=== PATIENT | female | born 2000 | race Caucasian/White ===

== ENCOUNTER 2022-05-15 12:04 | Emergency (ER) | payer OTHER, SELFPAY ==
--- NOTE | 2022-05-15 12:52 | ED.URI ---
HPI - URI/Sore Throat General Chief Complaint: Upper Respiratory Infection Stated Complaint: Sore Throat Time Seen by Provider: 05/15/22 13:05 Source: patient and RN notes reviewed Mode of arrival: ambulatory Limitations: no limitations History of Present Illness HPI Narrative: 22-year-old female presents concern for sore throat started last. She denies nasal congestion, rhinorrhea, fevers, aches chills sweats cough. She reports she has allergy-induced asthma and was cleaning her basement and thought maybe it just caused a reaction. She denies wheezing, has not used her inhaler. MD elicited complaint: sore throat Related Data Home Medications Medication Instructions Recorded Confirmed albuterol sulfate 90 mcg/actuation 2 puff inhalation PRN PRN 05/15/22 05/15/22 aerosol inhaler Shortness Of Breath cetirizine 10 mg capsule (Zyrtec) 10 mg PO DAILY 05/15/22 05/15/22 montelukast 10 mg tablet 10 mg DAILY 05/15/22 05/15/22 Allergies Allergy/AdvReac Type Severity Reaction Status Date / Time adhesive Allergy Hives Verified 05/15/22 12:19 gluten Allergy Diarrhea Verified 05/15/22 12:19 Review of Systems Review of Systems: CONSTITUTIONAL: Denies malaise, chills, sweats, or fever. EYES: Denies visual changes, redness, or discharge. ENT: Denies rhinorrhea, congestion, sinus pain, otalgia. Reports sore throat. CARDIOVASCULAR: Denies chest pain, palpitations, or edema. RESPIRATORY: Denies cough. Denies dyspnea. GASTROINTESTINAL: Denies abdominal pain, nausea, vomiting, diarrhea SKIN: Denies rash or itching. MUSCULOSKELETAL: Denies myalgia. NEUROLOGIC: Denies headache. All systems reviewed & are unremarkable except as noted in HPI and below PMFSH Comments At time of signature, agree with nursing past medical, surgical, social and family history. There is no relevant family history pertinent to the presenting complaint Exam Narrative: GENERAL: Well-appearing, well-nourished, and in no acute distress. HEAD: Normocephalic EYES: PERRLA, conjunctivae clear ENT: Nares clear, turbinates edematous and erythematous, clear discharge. Mucous membranes moist. TM pearly german with dull light reflex bilaterally; no tragal tenderness. Oropharynx not erythematous without lesions. Tonsils not enlarged and without exudate, no drooling, no hoarseness, no trismus, uvula midline. NECK: Supple. No lymphadenopathy CHEST: Clear to auscultation, breath sounds equal. No wheezing, rhonchi, rales, or stridor. No respiratory distress, speaks in full sentences. HEART: Regular rate and rhythm. No murmur heard. SKIN: Warm, dry, no rash. NEURO: Alert and oriented x3. PSYCH: Normal mood and affect Course Course Emergency Course: Patient is aware of diagnosis, understands and agrees to treatment plan. Anticipatory guidance given. Patient agrees to follow-up as directed and is aware of reasons to seek care at the emergency department. Portions of this record may have been created with voice recognition software Level of Care: Express Care Visit Vital Signs Vital signs: Reviewed. MDM - URI/Sore Throat MDM Narrative Medical decision making narrative: Differential diagnosis considered: Johnson virus, strep pharyngitis, allergic rhinitis, upper respiratory tract infection, sinusitis, rhinosinusitis, nasopharyngitis. viral pharyngitis, otitis media, otitis externa, pneumonia, bronchitis, viral cough syndrome, viral syndrome, and influenza. Exam findings show no acute concerns or changes; patient is non-toxic appearing and is in no distress. Patient is appropriate for outpatient treatment and follow-up. Lab Data Attestation: I reviewed the patient's lab results. Critical Care Time Critical Care Time Critical Care Time: No Discharge Plan Discharge Clinical Impression: Pharyngitis Patient Disposition: Home, Self-Care Condition: Stable Instructions: Pharyngitis (ED) Additional Instructions: Your symptoms are likely due to a viral illnes
== END 2022-05-15 13:25 | disposition home or self-care (01) ==
PROVIDERS: Emergency Provider Nurse Practitioner; PCP Family Medicine
DX: J02.9 Acute pharyngitis, unspecified (principal)
CPT/HCPCS: 99211; G0463

== ENCOUNTER 2024-09-21 12:56 | Emergency (ER) | payer OTHER, SELFPAY ==
[2024-09-21 12:57] VITALS: BP 139/83; PULSE 75; RESP 16; TEMP 36.2; O2SAT 98
--- OUTSIDE RECORDS SUMMARY | 2024-09-21 14:34 | XMS_ITS | Clinical Summary ---
Author Organization [facility] Business Office Address [address] [place] [address] Care Team Providers Care Blocklayer Name Role Phone Radha Knox DO Primary Care Provider [phone] Allergies Active Allergy Reactions Criticality Noted Date Comments Adhesive Tape-Silicones Rash Low 07/22/2017 Medications CETIRIZINE HCL (ZYRTEC ORAL) Take by mouth daily . Active norgestimate-et hinyl estradiol (MONONESSA, 28,) 0.25 mg-35 mcg tablet Take 1 Tablet by mouth daily. 1 Package 1 11/11/2017 Active Saccharomyces boulardii (FLORASTOR) 250 mg Capsule Take 500 mg by mouth daily. Active propranoloL (INDERAL) 10 mg tabletIndicatio ns:Test anxiety Take 1 Tablet (10 mg) by mouth 1 time daily as needed (test anxiety). 30 Tablet 6 10/13/2020 Active lidocaine (XYLOCAINE) 2 % jelly Apply 1 ml 5 minutes before activity. 30 mL 3 10/13/2020 Active Active Problems Problem Noted Date Diagnosed Date Gluten intolerance 05/22/2018 Immunizations Immunization Administration Dates Next Due (INFANRIX)(6 WKS-6 YRS) DIPT HERIA, TETANUS TOXOIDS, AND ACCELLULAR PERTUSSIS VACCINE (DTAP), 0.5 ML IM 02/22/2003,04/05/1999,1998,1997,1998 (IPOL)(6 WKS AND UP) POLIOVI EUGENE VACCINE, INACTIVATED (IPV), 3 DOSE, SUBCUT OR IM 02/22/2003,04/05/1999,1998,1997 (M-M-R II/PRIORIX)(12 MO UP) MEASLES, MUMPS AND RUBELLA VIRUS VACCINE, 0.5 ML IM/SUBCUT 02/22/2003,01/13/1999 HIB, Unspecified Formulation 04/05/1999, 1998,1998,1997 Hepatitis B Vaccine 1998,1998,1997 INFLUENZA VACCINE QUADRIVALE NT 6 MOS UP IM 05/22/2018 Family History Medical History Relation Name Comments Healthy Father Healthy Mother Relation Name Status Comments Father Alive Mother Alive Social History Tobacco Use Types Packs/Day Years Used Date Smoking Tobacco: Never Smokeless Tobacco: Never Tobacco Cessation:Counseling Given: No Alcohol Use Standard Drinks/Week Comments Yes 0 (1 standard drink = 0.6 oz pur e alcohol) socially Comments No Sex and Gender Information Value Date Recorded Sex Assigned at Not on file 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 Gender Identity Not on file Sexual Orientation Not on file Occupation Industry Job Start Date Job End Date Not on file Not on file Not on file Not on file Not on file Not on file Not on file Not on file Last Filed Vital Signs Vital Sign Reading Time Taken Comments Blood Pressure 122/80 10/13/2020 9:43 AM CDT Pulse 71 10/13/2020 9:43 AM CDT Temperature 36.7 C (98.1 F) 10/13/2020 9:43 AM CDT Respiratory Rate 18 10/13/2020 9:43 AM CDT Oxygen Saturation 99% 10/13/2020 9:43 AM CDT Inhaled Oxygen Concentration - - Weight 82.6 kg (182 lb) 10/13/2020 9:43 AM CDT Height 165.1 cm (5' 5 ) 10/13/2020 9:43 AM CDT Body Mass Index 30.29 10/13/2020 9:43 AM CDT Plan of Treatment Health Maintenance Due Date Last Done Comments DTAP/TDAP/TD VACCINES (6 - Tdap) 2009 02/22/2003, 04/05/1999, 1998, Additional history exists HPV VACCINES (1 - 3-dose series) 2013 HPV/Cotest (21-29) 01/07/2022 01/07/2017 CERVICAL CANCER SCREENING 10/14/2023 PAP SMEAR 10/14/2023 10/13/2020, 09/25, 01/07/2017 INFLUENZA VACCINE (#1) 2023 05/22/2018 Preventative Visit- Commercial 05/27/2024 0 10/13/2020, 05/22/2018, 01/07/2017, Additional history exists HPV/Cotest (30-65) 01/11/2028 01/07/2017 HEPATITIS B VACCINES Completed 1998, 1998, 1998 CHLAMYDIA SCREENING (ANNUAL) 11-24 YEARS Discontinued 10/13/2020 Procedures Procedure Name Priority Date/Time Associated Diagnosis Comments CHLAMYDIA AND GC, PAP VIAL Routine 10/13/2020 9:48 AM CDT Encounter for gynecological examination without abnormal finding CERV/VAG CYTO AGE BASED SCREEN PAP Routine 10/13/2020 9:48 AM CDT Encounter for gynecological examination without abnormal finding CERV/VAG CYTO SCREEN PAP RLFX HPV Routine 01/07/2017 8:13 AM CDT Well woman exam with routine gynecological exam from Last 3 Months or Most Recently Relevant to Health Maintenance Results * CERV/VAG CYTO AGE BASED SCREEN PAP (10/13/2020 9:48 AM CDT) COMMENT (PAP): SEE COMMENT 2:33 PM CDT [facility] Comment: This order for age-based cervical cancer and STI screening follows ACOG guidelines(PB 168, 140, ACX888). See individual assays for performing site location. CLINICAL INFORMATION Oral contraceptives 10/17/2020 2:33 PM CDT [facility] LAST MENSTRUAL PERIOD 10/05/2020 10/17/2020 2:33 PM CDT [facility] PREV PAP: 12/13/16 NIL 10/17/2020 2:33 PM CDT [facility] PREV BX: INFORMATION NOT PROVIDED 10/17/2020 2:33 PM CDT [facility] SOURCE Endocervix 10/17/2020 2:33 PM CDT [facility] ADEQUACY: SEE COMMENT 10/17/2020 2:33 PM CDT [facility] Comment: Satisfactory for evaluation. Endocervical/transformation zone component absent. PAP INTERP Negative for intraepithelial lesion or malignancy. 10/17/2020 2:33 PM CDT [facility] COMMENT This Pap test has been evaluated with computer assisted technology. 10/17/2020 2:33 PM CDT [facility] GROOMING ASSISTANT: SEE COMMENT 2020 2:33 PM CDT [facility] Comment: AMW, CT(ASCP) CT screening location: [place] [address] Administration [place] [address] EXPLANATORY NOTE SEE COMMENT 021 2:33 PM CDT [facility] Comment: EXPLANATORY NOTE: The Pap is a screening test for cervical cancer. It is not a diagnostic test and is subject to false negative and false positive results. It is most reliable when a satisfactory sample, regularly obtained, is submitted with relevant clinical findings and history, and when the Pap result is evaluated along with historic and current clinical information. Genital SWAB OF ENDOCERVIX / Unknown Collection / Unknown 10/13/2020 9:48 AM CDT 10/13/2020 12:46 PM CDT Narrative [facility] - 10/17/2020 2:33 PM CDT Performing Organization Information: Site ID: Name: [facility] Address: [facility] Administration [place] [address] Director: Karen Camp Radha Knox DO PATHOLOGY/CYTOLOGY ORDERABLES Final Result [facility] [phone] * CHLAMYDIA AND GC, PAP VIAL (10/13/2020 9:48 AM CDT) C TRAC RNA NOT DETECTED NOT DETECTED 10/17/2020 2:33 PM CDT [facility] N.GONORRHOEAE RNA, TMA NOT DETECTED NOT DETECTED 10/17/2020 2:33 PM CDT [facility] COMMENT SEE COMMENT 10/17/2020 2:33 PM CDT [facility] Comment: The analytical performance characteristics of this assay, when used to test SurePath(TM) specimens have been determined by [facility]. The modifications have not been cleared or approved by the FDA. This assay has been validated pursuant to the CLIA regulations and is used for clinical purposes. For additional information, please refer to https://education.[employer]faq/MFN973 (This link is being provided for information/ educational purposes only.) Genital SWAB OF ENDOCERVIX / Unknown Collection / Unknown 10/13/2020 9:48 AM CDT 10/13/2020 12:46 PM CDT Narrative [facility] - 10/17/2020 2:33 PM CDT Performing Organization Information: Site ID: [place] Name: [facility] Address: [address] [place] [address] Director: Jose White D.O., MPH Radha Knox DO BODY FLUIDS AND STOOLS COM Fin al Result [facility] [phone] * CERV/VAG CYTOPATH, THIN PREP IMAGR RFLX HPV (01/07/2017 8:13 AM CDT) CLINICAL INFORMATION SEE COMMENT 2017 3:24 PM CDT [facility] Comment:Oral contraceptives LAST MENSTRUAL PERIOD 2017010201/10/2017 3:24 PM CDT [facility] PREV PAP: SEE COMMENT 2017 3:24 PM CDT [facility] Comment:INFORMATION NOT PROV IDED PREV BX: SEE COMMENT 2017 3:24 PM CDT [facility] Comment:INFORMATION NOT PROV IDED SOURCE SEE COMMENT 2017 3:24 PM CDT [facility] Comment:Information not prov ided ADEQUACY: SEE COMMENT 2017 3:24 PM CDT [facility] Comment: Satisfactory for evaluation. Endocervical/transformation zone component absent. PAP INTERP SEE COMMENT 2017 3:24 PM CDT [facility] Comment:Negative for intraep ithelial lesion or malignancy. CYTOLOGY INFECTION SEE COMMENT 01/10 3:24 PM CDT [facility] Comment: Shift in vaginal christie suggestive of bacterial vaginosis. COMMENT SEE COMMENT 2017 3:24 PM CDT [facility] Comment: This Pap test has been evaluated with computer assisted technology. GROOMING ASSISTANT: SEE COMMENT 2016 3:24 PM CDT [facility] Comment: BAB, CT(ASCP) CT screening location: [place] [address] Administration [place] [address] Genital SWAB OF ENDOCERVIX / Unknown Collection / Unknown 01/07/2017 8:13 AM CDT 01/07/2017 1:19 PM CDT Narrative [facility] - 2017 3:24 PM CDT Performing Organization Information: Site ID: Name: [facility] Address: [facility] [place] [address] Director: Karen Camp MD Radha Knox DO PATHOLOGY/CYTOLOGY ORDERABLES Final Result [facility] from Last 3 Months or Most Recently Relevant to Health Maintenance Insurance [facility] Care Teams Blocklayer Relationship Specialty Start Date End Date Radha Knox DO [address] [place] [address] PCP - General Family Practice 09/29/15
--- OUTSIDE RECORDS SUMMARY | 2024-09-21 14:34 | XMS_ITS | Encounter Summary ---
Author Organization [facility] Address [address] [place] [address] Care Team Providers Care Copy Coordinator Name Role Phone Radha Knox DO Primary Care Provider [phone] Encounter Details Date Type Department Care Team (Late st Contact Info) Description 06/08/2003 Inpatient Historical [facility] [place] [address] [facility] [place] [phone] Mikey Perry DO [address] [facility] 5th [place] [address] STOMACH FUNCTION DIS NEC (Primary Dx) Social History Tobacco Use Types Packs/Day Years Used Date Smoking Tobacco: Never Assessed Comments Unknown Sex and Gender Information Value Date Recorded Sex Assigned at Not on file 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
--- OUTSIDE RECORDS SUMMARY | 2024-09-21 14:34 | XMS_ITS | Encounter Summary ---
Author Organization [facility] Address [address] [facility] [place] [address] Care Team Providers Care Momd Teacher Name Role Phone Radha Knox DO Primary Care Provider Encounter Details Date Type Department Care Team (Late st Contact Info) Description 01/30/2015 Ancillary Orders [facility] [place] [address] 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
--- OUTSIDE RECORDS SUMMARY | 2024-09-21 14:34 | XMS_ITS | Encounter Summary ---
Author Organization [facility] Address [address] [facility] [place] [address] Care Team Providers Care Bakery Decorator Name Role Phone Radha Knox DO Primary Care Provider Encounter Details Date Type Department Care Team (Late st Contact Info) Description 01/27/2003 Emergency [facility] [address] [facility] [place] [phone] Harjit Pérez MD NO ADDRESS ON FILE OTITIS MEDIA NOS (Primary Dx) Social History Tobacco Use Types Packs/Day Years Used Date Smoking Tobacco: Never Assessed Comments Unknown Sex and Gender Information Value Date Recorded Sex Assigned at Not on file 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
--- OUTSIDE RECORDS SUMMARY | 2024-09-21 14:34 | XMS_ITS | Encounter Summary ---
Author Organization [facility] Address [address] [place] [address] Care Team Providers Care Spray Gun Operator Name Role Phone Radha Knox DO Primary Care Provider [phone] Encounter Details Date Type Department Care Team (Latest Contact Info) Description 07/16/2017 Ancillary Orders [facility] [address] [place] [phone] Lorenzo Green MD [address] [place] [address] Acute pain of right shoulder; Shoulder instability, right Social History Tobacco Use Types Packs/Day Years Used Date Smoking Tobacco: Never Smokeless Tobacco: Never Alcohol Use Standard Drinks/Week Comments No 0 (1 standard drink = 0.6 oz pur e alcohol) Comments No Sex and Gender Information Value Date Recorded Sex Assigned at Not on file 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 Exam: XR SHOULDER 2+ VW RIGHT Date/Time of Exam: 07/16/2017 10:02 AM Reason For Exam: Acute pain of right shoulder, Shoulder instability, right. Findings: 0.2 mL ProHance and 5 mL Isovue-300 contrast was injected in the right glenohumeral joint and the images confirm the intra-articular injection of contrast. Please see the MRI of the same day. [id number] Narrative Procedure Note Myriam Steele MD - 07/16/2017 IMPRESSION: Please see below. Exam: XR SHOULDER 2+ VW RIGHT Date/Time of Exam: 07/16/2017 10:02 AM Reason For Exam: Acute pain of right shoulder, Shoulder instability, right. Findings: 0.2 mL ProHance and 5 mL Isovue-300 contrast was injected in the right glenohumeral joint and the images confirm the intra-articular injection of contrast. Please see the MRI of the same day. [id number] Lorenzo Green MD DIAGNOSTIC IMAGING ORDER ARELY Final Result documented in this encounter Visit Diagnoses Diagnosis Acute pain of right shoulder Shoulder instability, right Acute pain of right shoulder Shoulder instability, right documented in this encounter Care Teams Spray Gun Operator Relationship Specialty Start Date End Date aRdha Knox DO [address] [place] [phone] PCP - General Family Practice 09/29/15 documented as of this encounter
--- OUTSIDE RECORDS SUMMARY | 2024-09-21 14:34 | XMS_ITS | Patient Health Record ---
Author Organization [facility]olanda johnson Billing Info Address [address] [place] [address] [place] [address] Support Name Relationship Address Phone Arpan Norman Guarantor Unknown [phone] Reason For Referral No Information Medications Medication SIG (Take, Route, Fr equency, Duration) Notes Start Date End Date Status Zithromax Z-El 250 MG 2 tablets on the first day, then 1 tablet daily for 4 days Orally Once a day for 4 day(s) 12/13/2014 Active Zyrtec Allergy 10 MG 1 tablet as needed Orally Once a day Active Tylenol 325 MG 1 tablet as needed O rally every 6 hrs Active Social History Tobacco Use: Social History Observation Description Date Details (start date - stop date) Never Smoker NA - NA Tobacco Status: Question Answer Notes Patient is a never smoker Problems No Known Problems Plan Of Treatment No Information Insurance Providers Payer Name Payer Address Payer Phone Subscriber Number Group Number Insured Name Patient Relationship to Insured Coverage Start Date Coverage End Date [employer] [facility] [address] [place], [place] [id number] [phone] [id number] Arpan Norman Child - Insured has Financial Responsibility 5 5 Medications Administered Medication Instructions Date of Administration Dosage Notes zMethylprednisolone Acetate 80 mg (Depo Medrol) 12/13/2014 80 mg Medical (General) History Medical History History ICD Code History of chicken pox V12.09 Surgical History Surgery Date(Month/Year) knee arthroscopy 06/07 Knee arthroscaopy 06/06
--- OUTSIDE RECORDS SUMMARY | 2024-09-21 14:34 | XMS_ITS | Clinical Summary ---
Author Organization [facility] Business Office Address [address] [place] [address] Care Team Providers Care Reel Blade Bender Furnace Tender Name Role Phone Radha Knox Primary Care Provider [phone] Allergies Active Allergy Reactions Criticality Noted Date Comments Adhesive Tape-Silicones Rash Low 07/22/2017 Gluten Diarrhea Low 05/31/2021 Vomitting, diarrhea, fatigue and dermatitis Medications propranoloL (INDERAL) 10 mg tablet Take 10 mg by mouth 1 time daily as needed. 1 Active Saccharomyces boulardii (FLORASTOR) 250 mg Capsule Take 500 mg by mouth. Active lidocaine (XYLOCAINE) 2 % jelly Apply 1 ml 5 minutes before activity. 1 Active albuterol sulfate 90 mcg/Actuation inhaler Take 2 Puffs by inhalation every 6 hours as needed for Shortness of Breath. 8.5 Gram 1 Active Estarylla 0.25-35 mg-mcg tablet TAKE ONE TABLET BY MOUTH ONCE DAILY 28 Tablet 11 2 Active montelukast (SINGULAIR) 10 mg tablet TAKE 1 TABLET BY MOUTH EVERY NIGHT AT BEDTIME 90 Tablet 2 Active Active Problems Problem Noted Date Diagnosed [...] Tobacco: Never Alcohol Use Standard Drinks/Week Comments Yes 0 (1 standard drink = 0.6 oz pur e alcohol) Comments No Sex and Gender Information Value Date Recorded Sex Assigned at Not on file Legal Sex Female 11:57 PM DIRECTOR HOSPICE OPERATIONS Gender Identity Not on file Sexual Orientation Not on file Last Filed Vital Signs Vital Sign Reading Time Taken Comments Blood Pressure 122/80 10/13/2020 9:43 AM CDT Pulse 71 10/13/2020 9:43 AM CDT Temperature 36.7 C (98 F) 05/31/2021 9:45 AM DIRECTOR HOSPICE OPERATIONS Respiratory Rate 18 10/13/2020 9:43 AM CDT Oxygen Saturation - - Inhaled Oxygen Concentration - - Weight 84.6 kg (186 lb 9.6 oz) 05/31/2021 9:45 A M DIRECTOR HOSPICE OPERATIONS Height 165.1 cm (5' 5 ) 10/13/2020 9:43 AM CDT Body Mass Index 31.05 10/13/2020 9:43 AM CDT Plan of Treatment Health Maintenance Due Date Last Done Comments DTAP/TDAP/TD VACCINES (6 - Tdap) 2009 02/22/2003, 04/05/1999, 1998, Additional history exists HPV VACCINES (1 - 3-dose series) 2013 HPV/Cotest (21-29) 01/07/2022 01/07/2017 CERVICAL CANCER SCREENING 10/14/2023 PAP SMEAR 10/14/2023 10/13/2020, 09/25, 01/07/2017 INFLUENZA VACCINE (#1) 2023 05/22/2018 HPV/Cotest (30-65) 01/11/2028 01/07/2017 HEPATITIS B VACCINES Completed 1998, 1998, 1998 CHLAMYDIA SCREENING (ANNUAL) 11-24 YEARS Discontinued 10/13/2020 Procedures Procedure Name Priority Date/Time Associated Diagnosis Comments CHLAMYDIA AND GC, PAP VIAL Routine 10/13/2020 9:48 AM CDT CERV/VAG CYTO AGE BASED SCREEN PAP Routine 10/13/2020 9:48 AM CDT CERV/VAG CYTO SCREEN PAP RLFX HPV Routine 01/07/2017 8:13 AM CDT from Last 3 Months or Most Recently Relevant to Health Maintenance Results * CERV/VAG CYTO AGE BASED SCREEN PAP (10/13/2020 9:48 AM CDT) COMMENT (PAP): SEE COMMENT 2:33 PM CDT [facility] Comment: This order for age-based cervical cancer and STI screening follows ACOG guidelines(PB 168, 140, GTR464). See individual assays for performing site location. [...] 2:33 PM CDT [facility] BEAM DYER: SEE COMMENT 2020 2:33 PM CDT [facility] Comment: AMW, CT(ASCP) CT screening location: [place] [address] [address] [place] [address] EXPLANATORY NOTE SEE COMMENT 2:33 PM CDT [facility] Comment: EXPLANATORY NOTE: The [...] Collection / Unknown 10/13/2020 9:48 AM CDT 10/14/2020 7:19 AM CDT Narrative [facility] - 10/17/2020 2:33 PM CDT Performing Organization Information: Site ID: [email or web address] Name[email or web address] Address: [facility] [address] [place] [address] Director: Karen Camp Radha Knox DO PATHOLOGY/CYTOLOGY ORDERABLES Final Result [facility] [phone] [facility] * CHLAMYDIA AND GC, PAP VIAL (10/13/2020 9:48 AM CDT) C TRAC RNA NOT DETECTED NOT DETECTED 10/17/2020 2:33 PM CDT [facility] N.GONORRHOEAE RNA, TMA NOT DETECTED NOT DETECTED 10/17/2020 2:33 PM CDT [facility] COMMENT SEE COMMENT 10/17/2020 2:33 PM CDT [facility] Comment: The analytical performance characteristics of this assay, when used to test SurePath(TM) specimens have been determined by [email or web address]. The modifications have not been cleared or approved by the FDA. This assay has been validated pursuant to the CLIA regulations and is used for clinical purposes. For additional information, please refer to https://education.Referral.IM/faq/MHV682 (This link is being provided for information/ educational purposes only.) Genital SWAB OF ENDOCERVIX / Unknown Collection / Unknown 10/13/2020 9:48 AM CDT 10/14/2020 7:19 AM CDT Narrative [facility] - 10/17/2020 2:33 PM CDT Performing Organization Information: Site ID: [id number] Name: [email or web address] Address: [address] [place] [id number] Director: Jose White D.O., MPH Radha Knox DO BODY FLUIDS AND STOOLS COM Fin al Result [facility] [phone] [facility] * CERV/VAG CYTO SCREEN PAP RLFX HPV (01/07/2017 8:13 AM CDT) CLINICAL INFORMATION SEE COMMENT 2017 3:24 PM CDT [facility] Comment:Oral contraceptives LAST MENSTRUAL PERIOD 2017010201/10/2017 3:24 PM CDT [facility] PREV PAP: SEE COMMENT 2017 3:24 PM CDT [facility] Comment:INFORMATION NOT PROV IDED PREV BX: SEE COMMENT 2017 3:24 PM CDT [facility] Comment:INFORMATION NOT PROV IDED SOURCE SEE COMMENT 2017 3:24 PM CDT [facility] Comment:Information not prov ided ADEQUACY: SEE COMMENT 2017 3:24 PM CDT [facility] Comment: Satisfactory for evaluation. Endocervical/transformation zone component absent. PAP INTERP SEE COMMENT 2017 3:24 PM CDT [facility] Comment:Negative for intraep ithelial lesion or malignancy. CYTOLOGY INFECTION SEE COMMENT 01/10 3:24 PM CDT [facility] Comment: Shift in vaginal christie suggestive of bacterial vaginosis. COMMENT SEE COMMENT 2017 3:24 PM CDT [facility] Comment: This Pap test has been evaluated with computer assisted technology. BEAM DYER: SEE COMMENT 2016 3:24 PM CDT [facility] Comment: BAB, CT(ASCP) CT screening location: [place] [address] [place] [address] Genital SWAB OF ENDOCERVIX / Unknown Collection / Unknown 01/07/2017 8:13 AM CDT 01/09/2017 11:38 AM CDT Narrative [facility] - 2017 3:24 PM CDT Performing Organization Information: Site ID: Name: [email or web address] Address: [facility] [address] [place] [address] Director: Karen Camp MD Radha Knox DO PATHOLOGY/CYTOLOGY ORDERABLES Final Result Performing Organization Address City/State/[facility] Co de Phone Number [facility] from Last 3 Months or Most Recently Relevant to Health Maintenance Care Teams Reel Blade Bender Furnace Tender Relationship Specialty Start Date End Date Radha Knox DO [address] [place] [id number] PCP - General 08/10/20
--- OUTSIDE RECORDS SUMMARY | 2024-09-21 14:34 | XMS_ITS | Encounter Summary ---
Author Organization [employer] [facility] Address [address] [place] [address] Care Team Providers Care Solid Tire Tuber Machine Operator Name Role Phone Radha Knox DO Primary Care Provider [phone] Encounter Details Date Type Department Care Team (Latest Contact Info) Description 09/16/2009 Outpatient Historical [facility] Con[facility] [address] [place] [address] Radha Knox DO [address] [place] [address] Metrorrhagia (Primary Dx); Other General Medical Examination for Administrative Purposes Social History Tobacco Use Types Packs/Day Years Used Date Smoking Tobacco: Never Assessed Comments Unknown Sex and Gender Information Value Date Recorded Sex Assigned at Not on file Legal Sex Female 11:47 AM RESOURCE MANAGER Gender Identity Not on file Sexual Orientation Not on file documented as of this encounter Plan of Treatment Not on file documented as of this encounter Visit Diagnoses Diagnosis Metrorrhagia- Primary Other general medical examination for administrative purposes documented in this encounter Care Teams Solid Tire Tuber Machine Operator Relationship Specialty Start Date End Date Radha Knox DO [address] [place] [address] PCP - General Family Practice 09/29/15 documented as of this encounter
--- OUTSIDE RECORDS SUMMARY | 2024-09-21 14:34 | XMS_ITS | Encounter Summary ---
Author Organization [employer] [facility] Address [address] [place] [address] Care Team Providers Care Loadmaster Name Role Phone Radha Knox DO Primary Care Provider [phone] Encounter Details Date Type Department Care Team (Latest Contact Info) Description 08/01/2010 Outpatient Historical [facility] [address] [place] [address] Chris Tejeda DO [address] [place] [address] Acute upper respiratory infections of unspecified site (Primary Dx) Social History Tobacco Use Types Packs/Day Years Used Date Smoking Tobacco: Never Assessed Comments Unknown Sex and Gender Information Value Date Recorded Sex Assigned at Not on file Legal Sex Female 11:47 AM ASIC ENGINEER Gender Identity Not on file Sexual Orientation Not on file documented as of this encounter Plan of Treatment Not on file documented as of this encounter Visit Diagnoses Diagnosis Acute upper respiratory infections of unspecified site- Primary documented in this encounter Care Teams Loadmaster Relationship Specialty Start Date End Date Radha Knox DO [address] [place] [address] PCP - General Family Practice 09/29/15 documented as of this encounter
--- OUTSIDE RECORDS SUMMARY | 2024-09-21 14:34 | XMS_ITS | Referral Summary ---
Author Organization [address] Address [address] [place] [address] Care Team Providers Care Geotechnical Engineer Name Role Phone Greg Cody MD Primary Care Provider [phone] Encounters Date Type Department Care Team Description 09/20/2024 3:00 PM CDT Office Visit [facility] at [address] [place] [address] Brittany Siddiqui NP Urticaria (Primary Dx) 07/02/2024 10:30 AM EQUIPMENT MAINTENANCE ENGINEER Office Visit [facility] [address] [address] Nani Mcgowan NP Physical exam, annual (Primary Dx); Generalized anxiety disorder; Vitamin D deficiency; Class 1 obesity due to excess calories without serious comorbidity with body mass index (BMI) of 32.0 to 32.9 in adult; Subclinical hypothyroidism from Last 3 Months Allergies Active Allergy Reactions Criticality Noted Date Comments Adhesive Rash Medium 08/29/2021 Adhesive Tape-Silicones Rash Medium 07/22/2017 Gluten Diarrhea Low 05/31/2021 Vomitting, diarrhea, fatigue and dermatitis Levothyroxine Anxiety,Palpitation s Low 05/31/2023 Medications cetirizine (ZyrTEC) 10 mg tablet Take 1 tablet (10 mg total) by mouth daily Active albuterol HFA (PROVENTIL HFA,VENTOLIN HFA,PROAIR HFA) 90 mcg/actuation inhaler Inhale 2 puffs every 6 (six) hours as needed 05/24/2021 Active cholecalciferol (VITAMIN D-3) 5,000 unit tablet Active escitalopram (LEXAPRO) 10 mg tabletIndicatio ns:Generalized anxiety disorder Take 1 tablet (10 mg total) by mouth daily 90 tablet 4 07/02/2024 Active predniSONE (DELTASONE) 20 mg tabletIndicatio ns:Urticaria Take 2 tablets (40 mg) by mouth daily for 5 days 10 tablet 09/20/2024 Active Hospital, Clinic, or Other Facility Administered Medication Ordered Dose Route Frequency Start Date End Date Status methylPREDNISolone sodium succinate (SOLU-medrol) preservative free injection 125 mgIndications:Urticaria 125 mg IM Once 09/20/2024 09/21/19 Ended Active Problems Problem Noted Date Diagnosed Date Physical exam, annual 07/02/2024 Assessment & Plan (07/02/2024 11:13 AM EQUIPMENT MAINTENANCE ENGINEER): Preventative exam; reviewed screenings and vaccinations. Patient is scheduled with cattle dipper for well-woman exam this spring. Pharyngitis 03/20/2024 Class 1 obesity due to exces s calories without serious comorbidity with body mass index (BMI) of 32.0 to 32.9 in adult 09/17/2023 Assessment & Plan (07/02/2024 11:14 AM EQUIPMENT MAINTENANCE ENGINEER): Encouraged getting regular exercise and following a healthy diet. Assessment & Plan (03/20/2024 8:48 AM CDT): Encouraged healthy diet and regular exercise. Assessment & Plan (09/17/2023 8:22 AM CDT): Encouraged healthy diet and regular exercise. Subclinical hypothyroidism 05/31/2023 Assessment & Plan (07/02/2024 11:16 AM EQUIPMENT MAINTENANCE ENGINEER): T4 normal, mildly elevated TSH. Will continue to monitor. Assessment & Plan (03/20/2024 8:35 AM CDT): Will check TSH/T4 and continue to monitor. Lab Results Component Value Date TSH 5.25 (H) 08/31/2021 Assessment & Plan (05/31/2023 11:26 AM EQUIPMENT MAINTENANCE ENGINEER): Managed by endocrinology. Patient is continued levothyroxine 25 mcg about 1 month ago, felt it was contributing to anxiety. She is scheduled for follow-up with her product craftsman in 2 months. Vitamin D deficiency 05/31/2023 Assessment & Plan (07/02/2024 11:13 AM EQUIPMENT MAINTENANCE ENGINEER): Continue vitamin-D 5000 IU daily. Assessment & Plan (03/20/2024 8:35 AM CDT): Taking vitamin d 5000iu daily. Assessment & Plan (09/17/2023 8:16 AM CDT): Continues vitamin d 5000 international units daily. Generalized anxiety disorder 05/31/2023 Assessment & Plan (07/02/2024 11:14 AM EQUIPMENT MAINTENANCE ENGINEER): Feels moods are very well controlled at this time. Continue Lexapro 10 mg daily. Assessment & Plan (03/20/2024 8:36 AM CDT): Doing well with lexapro, states it is phenomenal . Sleeping well. Denies any depressive symptoms. No changes made today. Assessment & Plan (09/17/2023 8:14 AM CDT): Patient was started on lexapro 10 mg, instructed to start at 5 mg x 2 weeks. She reports she has continued with lexapro at 5mg and has noted improvement in moods. Will increase to 10 mg daily and continue to monitor. Assessment & Plan (05/31/2023 11:23 AM EQUIPMENT MAINTENANCE ENGINEER): Reviewed pharmacologic treatment options for management of anxiety including SSRI/SNRIs, and non-benzodiazepine anxiolytics. Will start prescription lexapro at 5 mg daily x 1 week hen increase to 10 mg daily. Reviewed medication and adverse effects. Encouraged patient to continue with counseling. Recommend healthy eating and regular exercise. Seek immediate medical attention if experiencing SI/HI. Will continue to monitor. Follow-up in 3-6 months. Multiple nevi 10/08/2022 Overview (03/20/2024): Sees derm Test anxiety 09/28/2022 Gluten intolerance 05/22/2018 Immunizations Immunization Administration Dates Next Due DTaP 02/22/2003, 9,1998,05/02,1998 Hep B Vaccine 06/07/2022, 2,11/30/2021,07/12,1998,1998 Hep B, Unspecified 1998,1998, 998 HiB 04/05/1999, 9,1998,03/09 Hib (PRP-T) 04/05/1999, 9,1998,03/09 IPV 02/22/2003, 9,1998,03/09 Influenza, Quadrivalent, Carmen l Culture-based MDCK, Preservative Free, Antibiotic Free, Intramuscular 03/04/2023,12/29/2021 Influenza, Quadrivalent, Spl it, Intramuscular 05/22/2018 Influenza, Trivalent, Cell Culture-based MDCK, Preservative Free, Antibiotic Free, Intramuscular 12/29/2021 Influenza, Trivalent, Preser vative Free, Intramuscular 03/20/2024 Influenza, Unspecified 03/06/2023,2021(Deferred: Patient Refused),05/27/2020(Deferred: Patient Refused) MMR 02/22/2003,01/13/1999 Meningococcal MCV4P (Menactra) 11/30/2015 OPV 04/05/1999 Tdap 11/24/2021,12/26/2011 Social History Tobacco Use Types Packs/Day Years Used Date Smoking Tobacco: Never Smokeless Tobacco: Never Tobacco Cessation:Counseling Given: Not Answered PHQ-2 Answer Date Recorded PHQ-2 Total Score (If total score is 3 or more points, staff should administer the PHQ-9) 0 07/02/2024 Comments No Sex and Gender Information Value Date Recorded Sex Assigned at Not on file Legal Sex Female 10:07 AM EQUIPMENT MAINTENANCE ENGINEER Gender Identity Female 08/29/2021 9:52 AM CDT Sexual Orientation Not on file Last Filed Vital Signs Vital Sign Reading Time Taken Comments Blood Pressure 108/62 09/20/2024 2:51 PM CDT Pulse 65 09/20/2024 2:51 PM CDT Temperature 36.4 C (97.6 F) 09/20/2024 2:51 PM CDT Respiratory Rate 18 09/20/2024 2:51 PM CDT Oxygen Saturation 99% 09/20/2024 2:51 PM CDT Inhaled Oxygen Concentration - - Weight 85.7 kg (189 lb) 09/20/2024 2:51 PM CDT Height 165.1 cm (5' 5 ) 09/20/2024 2:51 PM CDT Body Mass Index 31.45 09/20/2024 2:51 PM CDT Plan of Treatment Not on file Insurance [facility] [employer] [facility] Care Teams Geotechnical Engineer Relationship Specialty Start Date End [place] [address] PCP - General Family Medicine 08/28/21
--- OUTSIDE RECORDS SUMMARY | 2024-09-21 14:34 | XMS_ITS | Encounter Summary ---
Author Organization [facility] Healthcare Address [address] [place] [address] Care Team Providers Care Automobile Spring Repairer Name Role Phone Greg Cody MD Primary Care Provider [phone] Reason for Visit * Reason Comments Hives Hives on both legs a nd back of arms. Red, itchy, and raised bumps. OTC Benadryl (took two an hour ago) and daily zyrtec. Onset yesterday. No trouble breathing. No changes in soaps or medications. Did have a sick feeling on Saturday but that has resolved. Encounter Details Date Type Department Care Team (Late st Contact Info) Description 09/20/2024 3:00 PM CDT Office Visit [facility] [address] [place] [address] Brittany Siddiqui, CHICKEN BUYER [address] [address] Urticaria (Primary Dx) Social History Tobacco Use Types Packs/Day Years Used Date Smoking Tobacco: Never Smokeless Tobacco: Never PHQ-2 Answer Date Recorded PHQ-2 Total Score (If total score is 3 or more points, staff should administer the PHQ-9) 0 07/02/2024 Comments No Sex and Gender Information Value Date Recorded Sex Assigned at Not on file 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 Diagnosis Urticaria You have been given a Solu-Medrol 125 mg injection while in clinic today. Prescribed prednisone. Home care includes rest, hydration, over the counter medications, Zyrtec or Benadryl as needed, Pepcid 20 mg twice a day for 5 days. Follow up with your primary provider in 2-3 days as needed. Red flags include worsening symptoms including pain, swelling, headache, dizziness, congestion, fever, shortness of breath, chest pain, nausea/vomiting, abdomen pain, back pain, muscle pain, decreased range of motion, numbness/tingling, weakness, fatigue. Follow up with your primary provider, this clinic, or if severe go to ER. Thank you for entrusting your care to us today. Our patients are very important to us. Would you please take a minute to reply to the questionnaire that you will be receiving. * Attachments The following attachments cannot be sent through Care Everywhere. * Urticaria (Creative Director) (Burundian) documented in this encounter Ordered Prescriptions Prescription Sig Dispense Quantity Refills Last Filled Start Date End Date predniSONE (DELTASONE) 20 mg tabletIndications: Urticaria Take 2 tablets (40 mg) by mouth daily for 5 days 10 tablet 09/20/2024 documented in this encounter Progress Notes * Brittany Siddiqui, CHICKEN BUYER - 09/20/2024 3:00 PM CDT Images from the original note were not included. Subjective/Objective THE PATIENT HAS VERBALLY CONSENTED TO RECORDING THIS VISIT IN ORDER TO UTILIZE [employer] IN GENERATING THIS NOTE. Patient ID: Gemma Norman is a 24 y.o. female. Chief Complaint Hives (Hives on both legs and back of arms. Red, itchy, and raised bumps. OTC Benadryl (took two anhour ago) and daily zyrtec. Onset yesterday. No trouble breathing. No changes in soaps or medications. Did have a sick feeling on Saturday but that has resolved. ) History of Present Illness Gemma Norman is a 24 year old female who presents with hives on her arms and legs. Hives began yesterday, primarily affecting her arms and legs, and have been intermittent, appearingand disappearing, but progressively worsening. There is some redness on her ears, but no hives on her face or neck. No shortness of breath or difficulty swallowing. She has not introduced any new medications, foods, detergents, perfumes, soaps, or lotions recently. She has a history of severe seasonal allergies, particularly in the spring. An episode of diarrhea occurred on Saturday, which has since resolved, and the hives appeared after this episode. No fever, cough, or cold symptoms. This is her first experience with hives. She has a history of using steroids in the past and is familiar with her effects. Last menstrual period was 09/06/2024. HPI Review of system: All systems reviewed and are negative or noncontributory for this patient's presentation today other than as stated in HPI Physical Exam Vitals and nursing note reviewed. Constitutional: General: She is not in acute distress. Appearance: Normal appearance. She is normal weight. She is not ill-appearing, toxic-appearing or diaphoretic. HENT: Head: Normocephalic and atraumatic. Comments: No hives noted to neck or face. Right Ear: Tympanic membrane and ear canal normal. There is no impacted cerumen. Left Ear: Tympanic membrane and ear canal normal. There is no impacted cerumen. Ears: Comments: Bilateral external ears are erythematous, no hives noted. Nose: Nose normal. No congestion or rhinorrhea. Mouth/Throat: Mouth: Mucous membranes are moist. Pharynx: Oropharynx is clear. No oropharyngeal exudate or posterior oropharyngeal erythema. Eyes: Conjunctiva/sclera: Conjunctivae normal. Pupils: Pupils are equal, round, and reactive to light. Cardiovascular: Rate and Rhythm: Normal rate and regular rhythm. Heart sounds: Normal heart sounds. Pulmonary: Effort: Pulmonary effort is normal. No respiratory distress. Breath sounds: Normal breath sounds. No stridor. No wheezing, rhonchi or rales. Chest: Chest wall: No tenderness. Abdominal: General: There is no distension. Musculoskeletal: General: Normal range of motion. Cervical back: Normal range of motion and neck supple. Skin: General: Skin is warm and dry. Findings: Rash present. Comments: Hives noted to bilateral arms and bilateral knees. Neurological: General: No focal deficit present. Mental Status: She is alert and oriented to person, place, and time. Mental status is at baseline. Psychiatric: Mood and Affect: Mood normal. Behavior: Behavior normal. Thought Content: Thought content normal. Judgment: Judgment normal. Vitals: 09/20/24 1451 BP: 108/62 Pulse: 65 Resp: 18 Temp: 36.4 ??C (97.6 ??F) TempSrc: Tympanic SpO2: 99% Weight: 85.7 kg (189 lb) Height: 165.1 cm (5' 5 ) There are no diagnoses linked to this encounter. Results Assessment & Plan Urticaria Acute urticaria with hives on arms and legs, likely triggered by seasonal allergies. No respiratoryor facial involvement. First occurrence. - Administer Solu-Medrol injection today. - Start oral prednisone tomorrow. -Advise patient if she notice any difficulty speaking, swallowing, breathing, hives to the face or neck to follow up in ER for further evaluation. Wrap up instructions for patient: Diagnosis Urticaria Patient instructions/education: Urticaria You have been given a Solu-Medrol 125 mg injection while in clinic today. Prescribed prednisone. Home care includes rest, hydration, over the counter medications, Zyrtec or Benadryl as needed, Pepcid 20 mg twice a day for 5 days. Follow up with your primary provider in 2-3 days as needed. Red flags include worsening symptoms including pain, swelling, headache, dizziness, congestion, fever, shortness of breath, chest pain, nausea/vomiting, abdomen pain, back pain, muscle pain, decreased range of motion, numbness/tingling, weakness, fatigue. Follow up with your primary provider, this clinic, or if severe go to ER. Procedures Disposition- Patient presents with I have. Patient is nontoxic-appearing and in no acute distress. Vitals signs are stable. Discussed point of care test results with patient, lab test, X-rays that may have been completed or ordered during clinic visit. Treatments completed while in [facility] include Solu-Medrol injection. Given the history and physical exam findings, presentation/diagnosis is urticaria.The Differential diagnosis includes allergic reaction, contact dermatitis, allergies. However, these differential diagnosis are less likely given the data, history and physical exam. Supportive care was discussed including rest, hydration, [id number] meds to help with symptoms. Prednisone wasprescribed. Discussed medications dosages, usage & potential side effects. Advised close followup and return criteria/red flags were discussed. Risks and interactions reviewed with patient. Patient has been instructed to follow up w PCP or go to ER for any signs or symptoms that are of concernor worsening. Understanding of discharge instructions verbalized, and agrees with plan of care. Thepatient was given the opportunity to ask all questions and to have all questions answered. This note is dictated and transcribed by [employer]. Gallery Or Museum Technician variances may occur. Despite proofreading, typographical errors may occur. Brittany Siddiqui NP documented in this encounter Plan of Treatment Not on file documented as of this encounter Visit Diagnoses Diagnosis Urticaria- Primary Unspecified urticaria documented in this encounter Administered Medications Inactive Administered Medications - up to 3 most recent administrations Medication Order MAR Action Action Date Dose Rate Site methylPREDNISolone sodium succinate (SOLU-medrol) preservative free injection 125 mg 125 mg, intramuscular, Administer over 3 Minutes, Once, On 09/20/24 at 1600, For 1 dose, Administer 125 mg or less over 3 minutesIndications:Urtica aravind Given 09/20/2024 3:18 PM CDT 125 mg Right Dorsogluteal/Butto ck documented in this encounter Orders Medications Ordered That Chalino ht Not Have Been Administered Count Last Ordered Date First Ordered Date methylPREDNISolone sodium sumner ccinate (SOLU-medrol) preservative free injection 125 mg 1 09/20/2024 documented in this encounter Care Teams Automobile Spring Repairer Relationship Specialty Start Date End Date Greg Cody MD [address] [place] [address] PCP - General Family Medicine 08/28/21 documented as of this encounter
--- OUTSIDE RECORDS SUMMARY | 2024-09-21 14:34 | XMS_ITS | Clinical Summary ---
Author Organization [address] Address [address] [place] [id number] Care Team Providers Care Sexual Assault Nurse Name Role Phone Greg Cody MD Primary Care Provider [phone] Allergies Active Allergy Reactions Criticality Noted Date [...] mgIndications:Urticaria 125 mg IM Once 09/20/2024 09/21/19 25 Ended Active Problems Problem Noted Date Diagnosed Date Physical exam, annual 07/02/2024 Assessment & Plan (07/02/2024 11:13 AM COTTON BUYER): Preventative exam; reviewed screenings and vaccinations. Patient is scheduled with ends down checker for well-woman exam this spring. Pharyngitis 03/20/2024 Class 1 obesity due to exces s calories without serious comorbidity with body mass index (BMI) of 32.0 to 32.9 in adult 09/17/2023 Assessment & Plan (07/02/2024 11:14 AM COTTON BUYER): Encouraged getting regular exercise and following a healthy diet. Assessment & Plan (03/20/2024 8:48 AM CDT): Encouraged healthy diet and regular exercise. Assessment & Plan (09/17/2023 8:22 AM CDT): Encouraged healthy diet and regular exercise. Subclinical hypothyroidism 05/31/2023 Assessment & Plan (07/02/2024 11:16 AM COTTON BUYER): T4 normal, mildly elevated TSH. Will continue to monitor. Assessment & Plan (03/20/2024 8:35 AM CDT): Will check TSH/T4 and continue to monitor. Lab Results Component Value Date TSH 5.25 (H) 08/31/2021 Assessment & Plan (05/31/2023 11:26 AM COTTON BUYER): Managed by endocrinology. Patient is continued levothyroxine 25 mcg about 1 month ago, felt it was contributing to anxiety. She is scheduled for follow-up with her dirt supervisor in 2 months. Vitamin D deficiency 05/31/2023 Assessment & Plan (07/02/2024 11:13 AM COTTON BUYER): Continue vitamin-D 5000 IU daily. Assessment & Plan (03/20/2024 8:35 AM CDT): Taking vitamin d 5000iu daily. Assessment & Plan (09/17/2023 8:16 AM CDT): Continues vitamin d 5000 international units daily. Generalized anxiety disorder 05/31/2023 Assessment & Plan (07/02/2024 11:14 AM COTTON BUYER): Feels moods are very well controlled at [...] monitor. Assessment & Plan (05/31/2023 11:23 AM COTTON BUYER): Reviewed pharmacologic treatment options for management of [...] derm Test anxiety 09/28/2022 Gluten intolerance 05/22/2018 Encounters Date Type Department Care Team Description 09/20/2024 3:00 PM CDT Office Visit [facility] at [address] [place] [address] Brittany Siddiqui NP Urticaria (Primary Dx) 07/02/2024 10:30 AM COTTON BUYER Office Visit [facility] [address] [place] [id number] Nani Mcgowan NP Physical exam, annual (Primary Dx); Generalized anxiety disorder; Vitamin D deficiency; Class 1 obesity due to excess calories without serious comorbidity with body mass index (BMI) of 32.0 to 32.9 in adult; Subclinical hypothyroidism from Last 3 Months Immunizations Immunization Administration Dates Next Due DTaP [...] MCV4P (Menactra) 11/30/2015 OPV 04/05/1999 Tdap 11/24/2021,12/26/2011 Medical History Medical History Date Comments Hypothyroidism Social History Tobacco Use Types Packs/Day Years Used Date Smoking Tobacco: Never Smokeless Tobacco: Never Tobacco Cessation:Counseling Given: Not Answered PHQ-2 Answer Date Recorded PHQ-2 Total Score (If total score is 3 or more points, staff should administer the PHQ-9) 0 07/02/2024 Comments No Sex and Gender Information Value Date Recorded Sex Assigned at Not on file Legal Sex Female 10:07 AM 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 Gender Identity Female 08/29/2021 9:52 AM CDT Sexual Orientation Not on file Obstetrics History Last Filed Vital Signs Vital Sign Reading [...] 09/20/2024 2:51 PM CDT Plan of Treatment Health Maintenance Due Date Last Done Comments Cervical Cancer Screening 1998 Hepatitis C Screening 1998 Varicella Vaccines (1 of 2 - 13+ 2-dose series) 2011 HPV Vaccines (1 - 3-dose series) 2013 Covid-19 Vaccine (2023- season) 2024 11/24/2021, 07/25/2020, 07/04/2020 Depression Screening 07/02/2025 07/02/2024, 03/20/2024, 09/17/2023, Additional history exists Regular Well Visit/Exam 18-64 07/02/2025 07/02/2024, 05/31/2023 DTaP/Tdap/Td Vaccine (8 - Td or Tdap) 11/25/2031 11/24/2021, 12/26/2011, 02/22/2003, Additional history exists Hepatitis B Screening Completed 06/07/2022 , 12/29/2021, 11/30/2021, Additional history exists Influenza Vaccine Completed 03/20/2024, , 03/04/2023, Additional history exists Pneumococcal vaccine <65 Aged Out No longer eligible based on patient's age to complete this topic Insurance [place] [facility] OPEN ACCESS Care Teams Sexual Assault Nurse Relationship Specialty Start Date End Date Greg [place] [address] PCP - General Family Medicine 08/28/21
--- OUTSIDE RECORDS SUMMARY | 2024-09-21 14:34 | XMS_ITS | Encounter Summary ---
Author Organization [facility] Address [address] [facility] [place] [address] Care Team Providers Care Plan Nurse Name Role Phone Radha Knox Primary Care Provider [phone] Reason for Referral * Outpatient Services (Routine) - Closed Specialty Diagnoses / Procedures Referred By Contjosiane t Referred To Contact Radiology Diagnoses Pain Procedures MRI KNEE WO CONTRAST RIGHT Campos Garnett MD [address] [place] [address] Phone: tel: fax: [facility] [address] [place] [address] Phone: tel: fax: Referral ID Status Reason Start Date Expiration Date Visits Re quested Visits Authorized [id number] Closed 03/16/2014 04/16/2014 1 1 Encounter Details Date Type Department Care Team (Late st Contact Info) Description 03/16/2014 Ancillary Orders [facility] [address] [place] [address] Campos Garnett MD [address] [place] [phone] Pain (Primary Dx) Social History Tobacco Use Types Packs/Day Years Used Date Smoking Tobacco: Never Smokeless Tobacco: Never Alcohol Use Standard Drinks/Week Comments No 0 (1 standard drink = 0.6 oz pur e alcohol) Comments No Sex and Gender Information Value Date Recorded Sex Assigned at Not on file 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 EXAM: MR Left Lower Extremity Without Intravenous Contrast, Knee CLINICAL HISTORY: 14 years old, female; Other. Medial pain for 2 months, injury TECHNIQUE: Multiplanar magnetic resonance images of the left knee without intravenous contrast. COMPARISON: No relevant prior studies available. FINDINGS: Fluid: No evidence of significant joint effusion. There is no evidence of popliteal cyst. Cruciate ligaments: The posterior cruciate ligament is intact. It appears that there is fluid seen immediately lateral to the insertion of the anterior cruciate ligament and I suspect a partial tear of the insertion site. Refer to image #9 series 5. Tendons: The visualized quadriceps tendon and patellar tendon appear intact. Supporting ligaments: The medial and lateral collateral ligamentous complexes and retinacula are intact. Patellofemoral joint space: There is no evidence of subluxation. The articular surfaces are preserved. Joint space is maintained. The subjacent articulating femoral condyles and trochlear groove have an unremarkable appearance. Medial joint space compartment: There is no evidence of joint space loss or meniscal tear. The articular surfaces appear smooth. No significant degenerative change. Lateral joint space compartment: There is no evidence of joint space loss or meniscal tear. Articular surfaces appear smooth. No significant degenerative change. Bone marrow signal intensity: Normal Soft tissues: No evidence of muscle tear. No soft tissue masses. Impression IMPRESSION: There is a partial tear of the anterior cruciate ligament suspected at its insertion site laterally. Images were attached to this report and are available at [email or web address] DICTATED BY: Celina Hester on Saturday03/22/2014 05:35PM CDT This report a preliminary report from [facility] is reviewed and the study images are reviewed and is now utilized as a final report by Dr. Adan Peters. Procedure Note Adan Peters, - 03/22/2014 Procedure: MRI KNEE WO CONTRAST RIGHT Date: Mar 22, 2014 04:33:38 PM Reason for Exam: Generalized pain. EXAM: MR Left Lower Extremity Without Intravenous Contrast, Knee CLINICAL HISTORY: 14 years old, female; Other. Medial pain for 2 months, injury TECHNIQUE: Multiplanar magnetic resonance images of the left knee without intravenous contrast. COMPARISON: No relevant prior studies available. FINDINGS: Fluid: No evidence of significant joint effusion. There is no evidence of popliteal cyst. Cruciate ligaments: The posterior cruciate ligament is intact. It appears that there is fluid seen immediately lateral to the insertion of the anterior cruciate ligament and I suspect a partial tear of the insertion site. Refer to image #9 series 5. Tendons: The visualized quadriceps tendon and patellar tendon appear intact. Supporting ligaments: The medial and lateral collateral ligamentous complexes and retinacula are intact. Patellofemoral joint space: There is no evidence of subluxation. The articular surfaces are preserved. Joint space is maintained. The subjacent articulating femoral condyles and trochlear groove have an unremarkable appearance. Medial joint space compartment: There is no evidence of joint space loss or meniscal tear. The articular surfaces appear smooth. No significant degenerative change. Lateral joint space compartment: There is no evidence of joint space loss or meniscal tear. Articular surfaces appear smooth. No significant degenerative change. Bone marrow signal intensity: Normal Soft tissues: No evidence of muscle tear. No soft tissue masses. Impression IMPRESSION: There is a partial tear of the anterior cruciate ligament suspected at its insertion site laterally. Images were attached to this report and are available at [email or web address] DICTATED BY: Celina Hester on Saturday03/22/2014 05:35PM CDT This report a preliminary report from [facility] is reviewed and the study images are reviewed and is now utilized as a final report by Dr. Adan Peters. us Campos Garnett MD MR ORDERABLES Final Res ult documented in this encounter Visit Diagnoses Diagnosis Pain- Primary Generalized pain Pain Generalized pain documented in this encounter Care Teams Plan Nurse Relationship Specialty Start Date End Date Radha Knox [address] [place] [id number] PCP - General Family Practice 09/29/15 documented as of this encounter
--- OUTSIDE RECORDS SUMMARY | 2024-09-21 14:34 | XMS_ITS | Clinical Summary ---
Author Organization [facility] Address [address] [facility] [place] [address] Care Team Providers Care Fur Cutter Name Role Phone Tabitha Bajwa MD Primary Care Provider Source Comments [facility],non-owned Affiliates and Associated Physician Practices is amultiple site organization consisting of ambulatory clinics and hospital sitesin [place], [place], [place] and [place]. This disclosure is being madepursuant to the Care Everywhere program and may not contain all information available regarding this patient. Last updated 18.[facility] Allergies Active Allergy Reactions Criticality Noted Date Comments Adhesive Sensitivity Rash Medium 08/29/2021 Azelastine Other 12/04/2022 Panic attacks Gluten Meal Diarrhea 09/28/2022 Levothyroxine Unknown,Palpitations Low 05/31/2023 Medications * Be aware that medications may not be up to date on this document. Alwaysverify current medications with the patient. albuterol HFA (Proventil; Ventolin; Proair) 108 (90 Base) MCG/ACT inhaler Inhale 2 (two) puffs by mouth every 6 hours as needed 1 Active cetirizine (ZyrTEC) 10 MG tablet Take 1 (one) tablet by mouth once daily Active montelukast (Singulair) 10 MG tablet Take 1 (one) tablet by mouth at bedtime 2 Active propranolol (Inderal) 10 MG tablet Take 1 (one) tablet by mouth once daily as needed For anxiety. 2 Active levothyroxine (Synthroid) 50 MCG tablet Take 1 (one) tablet by mouth once daily 90 tablet 3 Active Additional Information Patient not taking.Reported on 09/27/2023 Cholecalciferol 125 MCG (5000 UT) Active escitalopram (Lexapro) 10 MG tablet 4 Active Active Problems Problem Noted Date Diagnosed Date Multiple nevi 10/08/2022 Overview (10/08/2022): Sees derm Subclinical hypothyroidism 09/29/2022 Overview (04/16/2023): TSH 5.5 2021; TSH 8.25 10/16; would start synthroid; has symptoms Developed palpitations on 50 mcg; decreased to 25 mcg 10/16 TSH 5.06 12/16; increase again to 50; recheck in 8 weeks TSH 1.86 on synthroid 50 02/16; recheck 6 months Frequent palpitations and weight loss; stop synthroid, recheck TSH in 08/17 Test anxiety 09/28/2022 Family history of Karlene thyroiditis 09/29/19 23 Gluten intolerance 05/22/2018 09/28/2022 Immunizations Immunization Administration Dates Next Due [employer] primary monoval ent 12+ yr 0.3mL Purple cap 07/25/2020,07/04/2020 DTaP VACCINE IM (6wk-6yrs) 02/22/2003,,1998,05/02,1998 FLU VACCINE QUAD IIV4 SPLIT 0.25 ML IM 8 HEP B VACCINE 1998,1998,1998 HEP B VACCINE, ADULT 3 DOSE 06/07/2022, 2,11/30/2021 HIB-PRP-T 4 DOSE 04/05/1999, 9,1998,03/09 INFLUENZA VACCINE, CELL CULT URE, QUADR. (FLUCELVAX QUADRIVALENT; 6MO+) (CCIIV4) 12/29/2021 MENINGOCOCCAL ACWY (MCV4P) VAC IM 11/30/2015 MMR VACCINE 02/22/2003,01/13/1999 POLIO IPV 02/22/2003,1998,1998 POLIO OPV 04/05/1999 TDAP, HISTORIC VACCINE 11/24/2021,12/26/2011 Family History Medical History Relation Name Comments Sleep Disorder - Other Father very loud snoring Arrhthymia Maternal Grandfather CAD (Coronary Artery Disease) Maternal Grandfather A Fib Cancer - Cervical Maternal Grandmother Arrhthymia Mother Asthma Mother Thyroid Disease Mother Cancer - Breast Paternal Grandmother Anxiety Disorder Sister mom Bipolar Disorder Sister mom Depression Sister mom Relation Name Status Comments Father Alive Maternal Grandfather Alive Maternal Grandmother Alive Mother Alive Paternal Grandfather Paternal Grandmother Sister mom Alive Social History Tobacco Use Types Packs/Day Years Used Date Smoking Tobacco: Never Passive Smoke Exposure: Never Smokeless Tobacco: Never Tobacco Cessation:Counseling Given: Not Answered Alcohol Use Standard Drinks/Week Comments Not Currently 0 (1 standard drink = 0.6 oz pur e alcohol) weekly 1-2 drinks Education Answer Date Recorded What is the highest level of school you have completed or the highest degree you have received? Bachelor's degree (e.g., BA, AB, BS) 01/14/2023 Comments Unknown Sex and Gender Information Value Date Recorded Sex Assigned at Female 09/29/2022 2:41 PM CDT Legal Sex Female 4:17 PM CDT Gender Identity Female 09/29/2022 2:41 PM CDT Sexual Orientation Straight 09/29/2022 2: 41 PM CDT Last Filed Vital Signs Vital Sign Reading Time Taken Comments Blood Pressure 132/88 01/14/2023 9:10 AM CDT Pulse 76 01/14/2023 9:10 AM CDT Temperature 36.7 C (98 F) 11/23/2022 11:59 AM CDT Respiratory Rate 16 11/23/2022 11:59 AM CDT Oxygen Saturation 99% 11/23/2022 11:59 AM CDT Inhaled Oxygen Concentration - - Weight 85.3 kg (188 lb) 01/14/2023 9:10 AM CDT Height 165.1 cm (5' 5 ) 01/14/2023 9:10 AM CDT Body Mass Index 31.28 01/14/2023 9:10 AM CDT Plan of Treatment Health Maintenance Due Date Last Done Comments HIV SCREENING 2013 HPV VACCINE (1 - 3-dose series) 2013 HEPATITIS C SCREENING 01/06/2016 PAP SMEAR 10/14/2023 10/13/2020 COVID-19 VACCINE ( season) 2024 11/24/2021, 07/25/2020, 07/04/2020 DEPRESSION SCREENING 05/27/2024 INFLUENZA VACCINE (Season Ended) 2025 03/06/2023, 03/04/2023, 12/29/2021, Additional history exists DTAP/TDAP/TD VACCINES (8 - Td or Tdap) 11/25/2031 11/24/2021, 12/26/2011, 02/22/2003, Additional history exists ZOSTER VACCINE (1 of 2) 01/11/2048 HIB VACCINE Completed 04/05/1999, 06/27, 1998, Additional history exists MENINGOCOCCAL GROUPS A/C/Y/W VACCINE Completed 11/30/2015 HEPATITIS B VACCINE Completed 06/07/2022, 12/29/2021, 11/30/2021, Additional history exists MENINGOCOCCAL (Group B) VACCINE SHARED DECISION-MAKING Aged Out No longer eligible based on patient's age to complete this topic PNEUMOCOCCAL VACCINE Aged Out No long er eligible based on patient's age to complete this topic Insurance AETNA AETNA Care Teams Fur Cutter Relationship Specialty Start Date End Date Tabitha Bajwa MD [address] [place] [address] PCP - General 03/05/24
--- OUTSIDE RECORDS SUMMARY | 2024-09-21 14:34 | XMS_ITS | Encounter Summary ---
Author Organization [employer] [facility] Address [address] [place] [address] Care Team Providers Care Clearing Supervisor Name Role Phone Radha Knox DO Primary Care Provider Encounter Details Date Type Department Care Team (Latest Contact Info) Description 08/01/2010 Outpatient Historical [facility] Conversion [address] [place] [address] Chrsi Tejeda DO [address] [place] [address] Acute upper respiratory infections of unspecified site (Primary Dx) Social History Tobacco Use Types Packs/Day Years Used Date Smoking Tobacco: Never Assessed Comments Unknown Sex and Gender Information Value Date Recorded Sex Assigned at Not on file 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
--- OUTSIDE RECORDS SUMMARY | 2024-09-21 14:34 | XMS_ITS | Encounter Summary ---
Author Organization [email or web address] [facility] Address [address] [place] [address] Care Team Providers Care Agent Producer Name Role Phone Radha Knox DO Primary Care Provider [phone] Encounter Details Date Type Department Care Team (Latest Contact Info) Description 07/26/2010 Outpatient Historical [facility] Conversion [address] [place] [address] Radha Knox DO [address] [place] [address] Other symptoms referable to lower leg joint (Primary Dx) Social History Tobacco Use Types Packs/Day Years Used Date Smoking Tobacco: Never Assessed Comments Unknown Sex and Gender Information Value Date Recorded Sex Assigned at Not on file 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
--- OUTSIDE RECORDS SUMMARY | 2024-09-21 14:34 | XMS_ITS | Encounter Summary ---
Author Organization [facility] [address] [facility] [address] Care Team Providers Care Timber Appraiser Name Role Phone Radha Knox DO Primary Care Provider [phone] Encounter Details Date Type Department Care Team (Late st Contact Info) Description 01/30/2015 Ancillary Orders [facility] [place] 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 Gender Identity Not on file Sexual Orientation Not on file Occupation Industry Job Start Date Job End Date Not on file Not on file Not on file Not on file Not on file Not on file Not on file Not on file documented as of this encounter Plan of Treatment Not on file documented as of this encounter Results * XR WRIST 3+ VW LEFT (01/30/2015 10:07 AM CDT) Anatomical Region Laterality Modality Wrist / Hand Computed Radiogr aphy 01/30/2015 9:50 AM CDT Narrative 01/30/2015 10:11 AM CDT 4 radiographs of the left wrist Jan 30, 2015 10:07:31 AM HISTORY: Wrist pain, acute, left COMPARISON: None FINDINGS/IMPRESSION: There is no fracture of dislocation. The joint spaces are maintained. The soft tissues are normal. Procedure Note Linwood Murphy MD - 01/30/2015 4 radiographs of the left wrist Jan 30, 2015 10:07:31 AM HISTORY: Wrist pain, acute, left COMPARISON: None FINDINGS/IMPRESSION: There is no fracture of dislocation. The joint spaces are maintained. The soft tissues are normal. us Jennifer Carlin NP DIAGNOSTIC IMAGING ORDERABLES Final Result documented in this encounter Visit Diagnoses Diagnosis Wrist pain, acute, left- Primary documented in this encounter Care Teams Timber Appraiser Relationship Specialty Start Date End Date Radha Knox DO [address] [place] [phone] PCP - General Family Practice 09/29/15 documented as of this encounter
--- NOTE | 2024-09-21 14:45 | ED_ITS ---
HPI - Allergic Reaction General Chief complaint: Allergic Reaction <Shannan Vazquez PA-C - Last Filed: 09/22/24 10:33> Stated complaint: allergic reaction <Shannan Vazquez PA-C - Last Filed: 09/22/24 10:33> Time Seen by Provider: 09/21/24 14:45 <Shannan Vazquez PA-C - Last Filed: 09/22/24 10:33> Focused HPI: This is a 24 year old female that presents to the ER for hives. Ongoing over the last 3 days. Reports she was seen at urgent care yesterday and started on Prednisone. Reports she has taken Prednisone, Benadryl, Zyrtec this morning. Reports seasonal allergies. No previous allergic reaction similar to this. No known exposures. GENERAL: Well-appearing, well-nourished, and in no acute distress. HEAD: Normocephalic, atraumatic. CHEST: Clear to auscultation. ?No respiratory distress. HEART: Regular rate and rhythm.? NEURO: ?Alert and oriented x3. Patient screened in triage and initial orders placed.? ?Additional care and disposition to be based upon?diagnostic testing and treatment. <Shannan Vazquez PA-C - Last Filed: 09/22/24 10:33> History of Present Illness HPI narrative: I agree with the above HPI <Victorino Sanchez MD - Last Filed: 09/21/24 22:01> Related Data Home medications: Home Medications ?Medication ?Instructions ?Recorded ?Confirmed ?Last Taken ?Type albuterol sulfate 90 mcg/actuation 2 puff inhalation PRN PRN 05/15/22 05/15/22 Unknown History aerosol inhaler Shortness Of Breath cetirizine 10 mg capsule (Zyrtec) 10 mg PO DAILY 05/15/22 05/15/22 Unknown History montelukast 10 mg tablet 10 mg DAILY 05/15/22 05/15/22 Unknown History <Shannan Vazquez PA-C - Last Filed: 09/22/24 10:33> Allergies/adverse reactions: Allergies Allergy/AdvReac Type Severity Reaction Status Date / Time adhesive Allergy Hives Verified 09/21/24 13:01 gluten Allergy Diarrhea Verified 09/21/24 13:01 oxymetazoline (From Afrin AdvReac Mild Palpitation Verified 09/21/24 13:01 (oxymetazoline)) s <Shannan Vazquez PA-C - Last Filed: 09/22/24 10:33> Review of Systems Review of Systems: All systems reviewed & are unremarkable except as noted in HPI and below <Victorino Sanchez MD - Last Filed: 09/21/24 22:01> Exam Narrative: APPEARANCE: Well appearing, no pain, no distress, well-nourished. HEAD: normocephalic, atraumatic. EYES: PERRLA/EOMI, conjunctivae clear. NOSE: Normal no drainage EARS:TMS clear with good light reflex. THROAT: Pharynx clear, no exudate. NECK: Supple. No adenopathy, no masses. RESPIRATORY: Airway patent, respirations nonlabored. Clear to auscultation bilaterally, no rales, rhonchi, wheezing. CARDIOVASCULAR: Regular rate and rhythm without murmurs rubs or gallops. ABDOMINAL: Soft, nontender, nondistended, normal bowel sounds MUSCULOSKELETAL: Moves all extremities. Strength/ROM intact, No edema, No calf tenderness. NEURO: Alert. Cranial nerves II through XII intact. SKIN: Warm, dry. Normal Color <Victorino Sanchez MD - Last Filed: 09/21/24 22:01> Course Vital Signs Vital signs: Vital Signs Temperature 97.1 F L 09/21/24 12:57 Pulse Rate 75 09/21/24 12:57 Respiratory Rate 16 09/21/24 12:57 Blood Pressure 139/83 09/21/24 12:57 Pulse Oximetry 98 09/21/24 12:57 Oxygen Delivery Room Air 09/21/24 12:57 Temperature 98.7 F 09/21/24 19:11 Pulse Rate 80 09/21/24 19:11 Respiratory Rate 18 09/21/24 19:11 Blood Pressure 116/72 09/21/24 16:03 Pulse Oximetry 100 09/21/24 19:11 Oxygen Delivery Room Air 09/21/24 12:57 <Sahnnan Vazquez PA-C - Last Filed: 09/22/24 10:33> Vital Signs Temperature 97.1 F L 09/21/24 12:57 Pulse Rate 75 09/21/24 12:57 Respiratory Rate 16 09/21/24 12:57 Blood Pressure 139/83 09/21/24 12:57 Pulse Oximetry 98 09/21/24 12:57 Oxygen Delivery Room Air 09/21/24 12:57 Temperature 98.7 F 09/21/24 19:11 Pulse Rate 80 09/21/24 19:11 Respiratory Rate 18 09/21/24 19:11 Blood Pressure 116/72 09/21/24 16:03 Pulse Oximetry 100 09/21/24 19:11 Oxygen Delivery Room Air 09/21/24 12:57 <Victorino Sanchez MD - Last Filed: 09/21/24 22:01> MDM - Allergic Reaction MDM Narrative Medical decision making narrative: 24-year-old female presents to emergency department for evaluation for allergic reaction. Patient was treated with IV Solu-Medrol yesterday and this did help her an initial hives and patient did not start her prednisone until today. Patient had recurrence of her hives and was evaluated emergency department restarted on Solu-Medrol, Benadryl and famotidine on re-evaluation patient states she does feel significantly improved. Patient did take 40 mg of prednisone this morning. Patient family updated on the results of the evaluation and plan for discharge home <Victorino Sanchez MD - Last Filed: 09/21/24 22:01> Differential Diagnosis Differential diagnosis: Likely anaphylaxis, allergic reaction, angioedema, contact dermatitis, viral enanthem and urticaria <Victorino Sanchez MD - Last Filed: 09/21/24 22:01> Critical Care Time Critical Care Time Critical Care Time: No <Shannan Vazquez PA-C - Last Filed: 09/22/24 10:33> Discharge Plan Discharge Clinical Impression: Urticaria <Shannan Vazquez PA-C - Last Filed: 09/22/24 10:33> Patient Disposition: Home <Shannan Vazquez PA-C - Last Filed: 09/22/24 10:33> Condition: Stable <Shannan Vazquez PA-C - Last Filed: 09/22/24 10:33> Instructions: Antibiotic Form, Urticaria (ED), Allergies (ED) <Shannan Vazquez PA-C - Last Filed: 09/22/24 10:33> Additional Instructions: Continue prednisone as directed. Benadryl as needed intermittently for itching and for hives. Have close follow-up with your primary care physician. You are being prescribed 2 appy pens. If you have to use the EpiPen than you need to be evaluated in the emergency department <Shannan Vazquez PA-C - Last Filed: 09/22/24 10:33> Patient Language: Jamaican <Shannan Vazquez PA-C - Last Filed: 09/22/24 10:33> Prescriptions: New epinephrine [EpiPen 2-El] 0.3 mg/0.3 mL auto-injector 0.3 mg IM ONCE Qty: 2 0RF Rx Instructions: as a single dose; may repeat once No Action montelukast 10 mg tablet 10 mg DAILY albuterol sulfate 90 mcg/actuation HFA aerosol inhaler 2 puff INHALATION PRN PRN (Reason: Shortness Of Breath) Zyrtec 10 mg Capsule 10 mg PO DAILY <Shannan Vazquez PA-C - Last Filed: 09/22/24 10:33> Follow-up/Referrals: Harms,Greg Quintana M.D. [Primary Care Provider] - <Shannan Vazquez PA-C - Last Filed: 09/22/24 10:33> Stand Alone Forms: Work/School Release IP <Shannan Vazquez PA-C - Last Filed: 09/22/24 10:33>
[2024-09-21 16:03] VITALS: BP 116/72; PULSE 70; RESP 20; TEMP 36.6; O2SAT 97
[2024-09-21] MEDS: methylPREDNISolone SOD SUCC 125 MG VIAL IV PUSH (16:28)
[2024-09-21] MEDS: FAMOTIDINE 20 MG TABLET PO (16:28)
[2024-09-21] MEDS: diphenhydrAMINE HCl CAP 25 MG CAPSULE PO (16:28)
--- OUTSIDE RECORDS SUMMARY | 2024-09-21 18:40 | XMS_ITS | Encounter Summary ---
Author Organization [employer] [facility] Address [address] [place] [address] Care Team Providers Care Process Tech Name Role Phone Radha Knox DO Primary Care Provider [phone] Encounter Details Date Type Department Care Team (Latest Contact Info) Description 07/26/2010 Outpatient Historical [facility] Conversion [address] [place] [address] Radha Knox DO [address] [place] [address] Other symptoms referable to lower leg joint (Primary Dx) Social History Tobacco Use Types Packs/Day Years Used Date Smoking Tobacco: Never Assessed Comments Unknown Sex and Gender Information Value Date Recorded Sex Assigned at Not on file 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
--- OUTSIDE RECORDS SUMMARY | 2024-09-21 18:40 | XMS_ITS | Encounter Summary ---
Author Organization [employer] [facility] Address [address] [place] [address] Care Team Providers Care Cereal Maker Name Role Phone Radha Knox DO Primary Care Provider [phone] Encounter Details Date Type Department Care Team (Latest Contact Info) Description 08/01/2010 Outpatient Historical [facility] Conversion [address] [place] [address] Chris Tejeda DO [address] [place] [address] Acute upper respiratory infections of unspecified site (Primary Dx) Social History Tobacco Use Types Packs/Day Years Used Date Smoking Tobacco: Never Assessed Comments Unknown Sex and Gender Information Value Date Recorded Sex Assigned at Not on file 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
--- OUTSIDE RECORDS SUMMARY | 2024-09-21 18:40 | XMS_ITS | Clinical Summary ---
Author Organization [facility] [employer] Address 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 See individual assays for performing site location. [...] 2:33 PM CDT [facility] CONFIGURATION DEVELOPER: SEE COMMENT 2020 2:33 PM CDT [facility] Comment: AMW, CT(ASCP) CT screening location: [place] [address] [address] [place] [address] EXPLANATORY NOTE SEE COMMENT 2:33 PM CDT [...] Performing Organization Information: Site ID: [id number] Name: [facility] Address: [facility] [address] [place] [address] Director: Karen Camp Radha Knox DO PATHOLOGY/CYTOLOGY ORDERABLES Final Result [facility] [phone] [facility] * CHLAMYDIA AND GC, [...] test SurePath(TM) specimens have been determined by [facility]. The modifications have not been cleared or approved by the FDA. This assay has been validated pursuant to the CLIA regulations and is used for clinical purposes. For additional information, please refer to https://education.Green Is Good/faq/PWH994 (This link is being provided for information/ educational purposes only.) Genital SWAB OF ENDOCERVIX / Unknown Collection / Unknown 10/13/2020 9:48 AM CDT 10/14/2020 7:19 AM CDT Narrative [facility] - 10/17/2020 2:33 PM CDT Performing Organization Information: Site ID: [id number] Name: [facility] Address: [address] [place] [address] Director: Jose White D.O., MPH Radha Knox DO BODY FLUIDS AND STOOLS COM Fin al Result [facility] [phone] [facility] * CERV/VAG CYTO [...] has been evaluated with computer assisted technology. CONFIGURATION DEVELOPER: SEE COMMENT 2016 3:24 PM CDT [facility] Comment: BAB, CT(ASCP) CT screening location: [place] [address] [place] [address] Genital SWAB OF ENDOCERVIX / Unknown Collection / Unknown 01/07/2017 8:13 AM CDT 01/09/2017 11:38 AM CDT Narrative [facility] - 2017 3:24 PM CDT Performing Organization Information: Site ID: Name: [facility] Address: [facility] [address] [place] [address] Director: Karen Camp MD Radha Knox DO PATHOLOGY/CYTOLOGY ORDERABLES Final Result Performing Organization Address City/State/[facility] Co de Phone Number [facility] from Last 3 Months or Most Recently Relevant to Health Maintenance Care Teams Narrow Fabric Calenderer Relationship Specialty Start Date End Date Radha Knox DO [address] [place] [phone] PCP - General 08/10/20
--- OUTSIDE RECORDS SUMMARY | 2024-09-21 18:40 | XMS_ITS | Clinical Summary ---
Author Organization [facility] Focus [facility] Address [address] [facility] [place] [address] Care Team Providers Care Automotive Manager Name Role Phone Tabitha Bajwa MD Primary Care Provider Source Comments [facility],non-owned Affiliates and Associated Physician Practices is amultiple site organization consisting of ambulatory clinics and hospital sitesin [place], [place], [place] and [place]. This disclosure is being madepursuant to the Care Everywhere program and may not contain all information available regarding this patient. Last updated 18.[facility] Allergies Active Allergy Reactions Criticality Noted Date [...] 09/28/2022 Immunizations Immunization Administration Dates Next Due [employer] primary monoval ent 12+ yr 0.3mL Purple [...] this topic Insurance AETNA AETNA Care Teams Automotive Manager Relationship Specialty Start Date End Date Tabitha Bajwa MD [address] [place] [address] PCP - General 03/05/24
--- OUTSIDE RECORDS SUMMARY | 2024-09-21 18:40 | XMS_ITS | Encounter Summary ---
Author Organization [facility] Address [address] [place] [address] Care Team Providers Care Lease Buyer Name Role Phone Radha Knox DO Primary Care Provider Encounter Details Date Type Department Care Team (Late st Contact Info) Description 01/27/2003 Emergency [facility] Emergency Services [address] [facility] [place] [phone] Harjit Pérez MD NO ADDRESS ON FILE OTITIS MEDIA NOS (Primary Dx) Social History Tobacco Use Types Packs/Day Years Used Date Smoking Tobacco: Never Assessed Comments Unknown Sex and Gender Information Value Date Recorded Sex Assigned at Not on file Legal Sex Female 11:47 AM MANAGER OF RADIOLOGY Gender Identity Not on file Sexual Orientation Not on file documented as of this encounter Plan of Treatment Not on file documented as of this encounter Visit Diagnoses Diagnosis Unspecified otitis media- Primary documented in this encounter Care Teams Lease Buyer Relationship Specialty Start Date End Date Radha Knox DO [address] [place] [phone] PCP - General Family Practice 09/29/15 documented as of this encounter
--- OUTSIDE RECORDS SUMMARY | 2024-09-21 18:40 | XMS_ITS | Clinical Summary ---
Author Organization [address] Address [address] [place] [address] Care Team Providers Care Air Saw Operator Name Role Phone Greg Cody MD Primary Care Provider [phone] Allergies Active Allergy Reactions Criticality Noted Date [...] 07/02/2024 Assessment & Plan (07/02/2024 11:13 AM STRIP MINE SUPERVISOR): Preventative exam; reviewed screenings and vaccinations. Patient is scheduled with nurse gynecology for well-woman exam this spring. Pharyngitis 03/20/2024 Class 1 obesity due to exces s calories without serious comorbidity with body mass index (BMI) of 32.0 to 32.9 in adult 09/17/2023 Assessment & Plan (07/02/2024 11:14 AM STRIP MINE SUPERVISOR): Encouraged getting regular exercise and following a healthy diet. Assessment & Plan (03/20/2024 8:48 AM CDT): Encouraged healthy diet and regular exercise. Assessment & Plan (09/17/2023 8:22 AM CDT): Encouraged healthy diet and regular exercise. Subclinical hypothyroidism 05/31/2023 Assessment & Plan (07/02/2024 11:16 AM STRIP MINE SUPERVISOR): T4 normal, mildly elevated TSH. Will continue to monitor. Assessment & Plan (03/20/2024 8:35 AM CDT): Will check TSH/T4 and continue to monitor. Lab Results Component Value Date TSH 5.25 (H) 08/31/2021 Assessment & Plan (05/31/2023 11:26 AM STRIP MINE SUPERVISOR): Managed by endocrinology. Patient is continued levothyroxine 25 mcg about 1 month ago, felt it was contributing to anxiety. She is scheduled for follow-up with her carver and checkerer specials in 2 months. Vitamin D deficiency 05/31/2023 Assessment & Plan (07/02/2024 11:13 AM STRIP MINE SUPERVISOR): Continue vitamin-D 5000 IU daily. Assessment & Plan (03/20/2024 8:35 AM CDT): Taking vitamin d 5000iu daily. Assessment & Plan (09/17/2023 8:16 AM CDT): Continues vitamin d 5000 international units daily. Generalized anxiety disorder 05/31/2023 Assessment & Plan (07/02/2024 11:14 AM STRIP MINE SUPERVISOR): Feels moods are very well controlled at [...] monitor. Assessment & Plan (05/31/2023 11:23 AM STRIP MINE SUPERVISOR): Reviewed pharmacologic treatment options for management of [...] Description 09/20/2024 3:00 PM CDT Office Visit [facility] Care at [address] [place] [address] Brittany Siddiqui NP Urticaria (Primary Dx) 07/02/2024 10:30 AM STRIP MINE SUPERVISOR Office Visit [facility] [address] [place] [phone] Nani Mcgowan NP Physical exam, annual (Primary [...] on file Legal Sex Female 10:07 AM STRIP MINE SUPERVISOR Gender Identity Female 08/29/2021 9:52 AM CDT [...] patient's age to complete this topic Insurance [place] [facility] OPEN ACCESS Care Teams Air Saw Operator Relationship Specialty Start Date End Date [place] [address] PCP - General Family Medicine 08/28/21
--- OUTSIDE RECORDS SUMMARY | 2024-09-21 18:40 | XMS_ITS | Encounter Summary ---
Author Organization [facility] Healthcare Address [address] [place] [address] Care Team Providers Care Timber Feller Name Role Phone Greg Cody MD Primary Care Provider [phone] Reason for Visit * Reason Comments Hives [...] Description 09/20/2024 3:00 PM CDT Office Visit [facility] [address] [place] [address] Brittany Siddiqui, LOOM SETTER [address] [address] Urticaria (Primary Dx) Social History Tobacco Use Types Packs/Day Years Used Date Smoking Tobacco: Never Smokeless Tobacco: Never PHQ-2 Answer Date Recorded PHQ-2 Total Score (If total score is 3 or more points, staff should administer the PHQ-9) 0 07/02/2024 Comments No Sex and Gender Information Value Date Recorded Sex Assigned at Not on file Legal Sex Female 10:07 AM LEAD BI DEVELOPER Gender Identity Female 08/29/2021 9:52 AM CDT [...] be sent through Care Everywhere. * Urticaria (Computer Systems Software Architect) (Lao) documented in this encounter Ordered Prescriptions Prescription Sig Dispense Quantity Refills Last Filled Start Date End Date predniSONE (DELTASONE) 20 mg tabletIndications: Urticaria Take 2 tablets (40 mg) by mouth daily for 5 days 10 tablet 09/20/2024 documented in this encounter Progress Notes * Brittany Siddiqui, LOOM SETTER - 09/20/2024 3:00 PM CDT Images from [...] Supportive care was discussed including rest, hydration, purt-sdx-olqxeyz meds to help with symptoms. Prednisone wasprescribed. [...] This note is dictated and transcribed by [employer]. Mounting Inspector variances may occur. Despite proofreading, typographical errors [...] 09/20/2024 documented in this encounter Care Teams Timber Feller Relationship Specialty Start Date End Date Greg Cody MD [address] [place] [address] PCP - General Family Medicine 08/28/21 documented as of this encounter"
--- OUTSIDE RECORDS SUMMARY | 2024-09-21 18:40 | XMS_ITS | Encounter Summary ---
Author Organization [facility] Address [address] [place] [address] Care Team Providers Care Logging Operations Inspector Name Role Phone Radha Knox DO Primary Care Provider [phone] Encounter Details Date Type Department Care Team (Latest Contact Info) Description 07/16/2017 Ancillary Orders [facility] Orthopedics - Orthopedic [facility] [address] [place] [phone] Lorenzo Green MD [address] [place] [address] Acute pain of right shoulder; Shoulder instability, right Social History Tobacco Use Types Packs/Day Years Used Date Smoking Tobacco: Never Smokeless Tobacco: Never Alcohol Use Standard Drinks/Week Comments No 0 (1 standard drink = 0.6 oz pur e alcohol) Comments No Sex and Gender Information Value Date Recorded Sex Assigned at Not on file Legal Sex Female 11:47 AM INTERNSHIP Gender Identity Not on file Sexual Orientation [...] SHOULDER 2+ VW RIGHT (07/16/2017 10:02 AM INTERNSHIP) Anatomical Region Laterality Modality Upper Extremity Computed Radiogr aphy 07/16/2017 10:0 2 AM INTERNSHIP Impressions 07/16/2017 10:54 AM INTERNSHIP IMPRESSION: Please see below. Exam: XR SHOULDER 2+ VW RIGHT Date/Time of Exam: 07/16/2017 10:02 AM Reason For Exam: Acute pain of right shoulder, Shoulder instability, right. Findings: 0.2 mL ProHance and 5 mL Isovue-300 contrast was injected in the right glenohumeral joint and the images confirm the intra-articular injection of contrast. Please see the MRI of the same day. [id number] Narrative Procedure Note Myriam Steele MD - [...] see the MRI of the same day. [id number] Lorenzo Green MD DIAGNOSTIC IMAGING ORDER ARELY Final Result documented in this encounter Visit Diagnoses Diagnosis Acute pain of right shoulder Shoulder instability, right Acute pain of right shoulder Shoulder instability, right documented in this encounter Care Teams Logging Operations Inspector Relationship Specialty Start Date End Date Radha Knox DO [address] [place] [phone] PCP - General Family Practice 09/29/15 documented as of this encounter
--- OUTSIDE RECORDS SUMMARY | 2024-09-21 18:40 | XMS_ITS | Encounter Summary ---
Author Organization [facility] Address [address] [facility] [place] [place] [address] Care Team Providers Care Valve Grinder Name Role Phone Radha Knox DO Primary Care Provider [phone] Encounter Details Date Type Department Care Team (Late st Contact Info) Description 06/08/2003 Inpatient Historical [facility] [address] [facility] [place] [phone] Mikey Perry DO [address] [facility] 5th [place] [address] STOMACH FUNCTION DIS NEC (Primary Dx) Social History Tobacco Use Types Packs/Day Years Used Date Smoking Tobacco: Never Assessed Comments Unknown Sex and Gender Information Value Date Recorded Sex Assigned at Not on file Legal Sex Female 11:47 AM CONCRETE HOPPER OPERATOR Gender Identity Not on file Sexual Orientation Not on file documented as of this encounter Plan of Treatment Not on file documented as of this encounter Visit Diagnoses Diagnosis Dyspepsia and other specified disorders of function of stomach- Primary documented in this encounter Care Teams Valve Grinder Relationship Specialty Start Date End Date Radha Knox DO [address] [place] [phone] PCP - General Family Practice 09/29/15 documented as of this encounter
--- OUTSIDE RECORDS SUMMARY | 2024-09-21 18:40 | XMS_ITS | Referral Summary ---
Author Organization [address] Address [address] [place] [address] Care Team Providers Care Safe Expert Name Role Phone Greg Cody MD Primary Care Provider [phone] Encounters Date Type Department Care Team Description 09/20/2024 3:00 PM CDT Office Visit [facility] Convenient Care at [address] [place] [address] Brittany Siddiqui NP Urticaria (Primary Dx) 07/02/2024 10:30 AM WASH HOUSE SUPERVISOR Office Visit [facility] [address] [address] Nani Mcgowan NP Physical exam, [...] 07/02/2024 Assessment & Plan (07/02/2024 11:13 AM WASH HOUSE SUPERVISOR): Preventative exam; reviewed screenings and vaccinations. Patient is scheduled with investment accounting clerk for well-woman exam this spring. Pharyngitis 03/20/2024 Class 1 obesity due to exces s calories without serious comorbidity with body mass index (BMI) of 32.0 to 32.9 in adult 09/17/2023 Assessment & Plan (07/02/2024 11:14 AM WASH HOUSE SUPERVISOR): Encouraged getting regular exercise and following a healthy diet. Assessment & Plan (03/20/2024 8:48 AM CDT): Encouraged healthy diet and regular exercise. Assessment & Plan (09/17/2023 8:22 AM CDT): Encouraged healthy diet and regular exercise. Subclinical hypothyroidism 05/31/2023 Assessment & Plan (07/02/2024 11:16 AM WASH HOUSE SUPERVISOR): T4 normal, mildly elevated TSH. Will continue to monitor. Assessment & Plan (03/20/2024 8:35 AM CDT): Will check TSH/T4 and continue to monitor. Lab Results Component Value Date TSH 5.25 (H) 08/31/2021 Assessment & Plan (05/31/2023 11:26 AM WASH HOUSE SUPERVISOR): Managed by endocrinology. Patient is continued levothyroxine 25 mcg about 1 month ago, felt it was contributing to anxiety. She is scheduled for follow-up with her cone examiner in 2 months. Vitamin D deficiency 05/31/2023 Assessment & Plan (07/02/2024 11:13 AM WASH HOUSE SUPERVISOR): Continue vitamin-D 5000 IU daily. Assessment & Plan (03/20/2024 8:35 AM CDT): Taking vitamin d 5000iu daily. Assessment & Plan (09/17/2023 8:16 AM CDT): Continues vitamin d 5000 international units daily. Generalized anxiety disorder 05/31/2023 Assessment & Plan (07/02/2024 11:14 AM WASH HOUSE SUPERVISOR): Feels moods are very well controlled [...] monitor. Assessment & Plan (05/31/2023 11:23 AM WASH HOUSE SUPERVISOR): Reviewed pharmacologic treatment options for management [...] on file Legal Sex Female 10:07 AM WASH HOUSE SUPERVISOR Gender Identity Female 08/29/2021 9:52 AM [...] Plan of Treatment Not on file Insurance [facility] monEchelle ACCESS Care Teams Safe Expert Relationship Specialty Start Date End Date [place] [address] PCP - General Family Medicine 08/28/21
--- OUTSIDE RECORDS SUMMARY | 2024-09-21 18:40 | XMS_ITS | Encounter Summary ---
Author Organization [facility] Address [address] [facility] [place] [address] Care Team Providers Care Assistant Professor Of Theater Name Role Phone Radha Knox Primary Care Provider [phone] Reason for Referral * Outpatient Services (Routine) - Closed Specialty Diagnoses / Procedures Referred By Contjosiane t Referred To Contact Radiology Diagnoses Pain Procedures MRI KNEE WO CONTRAST RIGHT Campos Garnett MD [address] [place] [address] Phone: tel: fax: [facility] [address] [place] [address] Phone: tel: fax: Referral ID Status Reason Start Date Expiration Date Visits Re quested Visits Authorized [id number] Closed 03/16/2014 04/16/2014 1 1 Encounter Details Date Type Department Care Team (Late st Contact Info) Description 03/16/2014 Ancillary Orders [facility] [address] [place] [address] Campos Garnett MD [address] [place] [address] Pain (Primary Dx) Social History Tobacco Use Types Packs/Day Years Used Date Smoking Tobacco: Never Smokeless Tobacco: Never Alcohol Use Standard Drinks/Week Comments No 0 (1 standard drink = 0.6 oz pur e alcohol) Comments No Sex and Gender Information Value Date Recorded Sex Assigned at Not on file Legal Sex Female 11:47 AM PURCHASER AUTOMOTIVE PARTS Gender Identity Not on file Sexual Orientation [...] to this report and are available at [email or web address] DICTATED BY: Celina Hester on Saturday03/22/2014 05:35PM CDT This report a preliminary report from [facility] is reviewed and the study images are [...] to this report and are available at [email or web address] DICTATED BY: Celina Hester on Saturday03/22/2014 05:35PM CDT This report a preliminary report from [facility] is reviewed and the study images are reviewed and is now utilized as a final report by Dr. Adan Peters. us Campos Garnett MD MR ORDERABLES Final Res ult documented in this encounter Visit Diagnoses Diagnosis Pain- Primary Generalized pain Pain Generalized pain documented in this encounter Care Teams Assistant Professor Of Theater Relationship Specialty Start Date End Date Radha Knox [address] [place] [phone] PCP - General Family Practice 09/29/15 documented as of this encounter
--- OUTSIDE RECORDS SUMMARY | 2024-09-21 18:40 | XMS_ITS | Encounter Summary ---
Author Organization [facility] [address] [facility] [address] Care Team Providers Care Physical Sciences Professor Name Role Phone Radha Knox DO Primary Care Provider [phone] Encounter Details Date Type Department Care Team (Late st Contact Info) Description 01/30/2015 Ancillary Orders [facility] and Imaging Services-[facility] [place] [address] [place] [address] Jennifer Carlin, LACE MENDER NO ADDRESS ON FILE Wrist pain, acute, left (Primary Dx) Social History Tobacco Use Types Packs/Day Years Used Date Smoking Tobacco: Never Smokeless Tobacco: Never Alcohol Use Standard Drinks/Week Comments No 0 (1 standard drink = 0.6 oz pur e alcohol) Comments No Sex and Gender Information Value Date Recorded Sex Assigned at Not on file Legal Sex Female 11:47 AM BUSINESS SYSTEMS MANAGER Gender Identity Not on file Sexual [...] Primary documented in this encounter Care Teams Physical Sciences Professor Relationship Specialty Start Date End Date Radha Knox DO [address] [place] [phone] PCP - General Family Practice 09/29/15 documented as of this encounter
--- OUTSIDE RECORDS SUMMARY | 2024-09-21 18:40 | XMS_ITS | Encounter Summary ---
Author Organization [facility] Address [address] [place] [address] Care Team Providers Care Steelscope Operator Name Role Phone Radha Knox DO Primary Care Provider [phone] Encounter Details Date Type Department Care Team (Late st Contact Info) Description 01/30/2015 Ancillary Orders [facility] Imaging Services[facility] [place] [address] [place] [phone] Jennifer Carlin NP NO ADDRESS ON FILE Social History Tobacco Use Types Packs/Day Years Used Date Smoking Tobacco: Never Smokeless Tobacco: Never Alcohol Use Standard Drinks/Week Comments No 0 (1 standard drink = 0.6 oz pur e alcohol) Comments No Sex and Gender Information Value Date Recorded Sex Assigned at Not on file Legal Sex Female 11:47 AM ARMHOLE BASTER JUMPBASTING Gender Identity Not on file Sexual Orientation [...] on filedocumented in this encounter Care Teams Steelscope Operator Relationship Specialty Start Date End Date Radha Knox DO [address] [place] [phone] PCP - General Family Practice 09/29/15 documented as of this encounter
--- OUTSIDE RECORDS SUMMARY | 2024-09-21 18:40 | XMS_ITS | Encounter Summary ---
Author Organization [employer] [facility] Address [address] [place] [address] Care Team Providers Care Press Tool Maker Name Role Phone Radha Knox DO Primary Care Provider [phone] Encounter Details Date Type Department Care Team (Latest Contact Info) Description 08/01/2010 Outpatient Historical [facility] [address] [place] [address] Chris Tejeda DO [address] [place] [address] Acute upper respiratory infections of unspecified site (Primary Dx) Social History Tobacco Use Types Packs/Day Years Used Date Smoking Tobacco: Never Assessed Comments Unknown Sex and Gender Information Value Date Recorded Sex Assigned at Not on file Legal Sex Female 11:47 AM DENTAL EQUIPMENT MECHANIC Gender Identity Not on file Sexual Orientation Not on file documented as of this encounter Plan of Treatment Not on file documented as of this encounter Visit Diagnoses Diagnosis Acute upper respiratory infections of unspecified site- Primary documented in this encounter Care Teams Press Tool Maker Relationship Specialty Start Date End Date Radha Knox DO [address] [place] [address] PCP - General Family Practice 09/29/15 documented as of this encounter
--- OUTSIDE RECORDS SUMMARY | 2024-09-21 18:40 | XMS_ITS | Clinical Summary ---
Author Organization [facility] Business Office Address [address] [place] [address] Care Team Providers Care Bagging Machine Operator Name Role Phone Radha Knox DO Primary Care Provider [phone] Allergies Active Allergy Reactions Criticality Noted Date [...] on file Legal Sex Female 11:47 AM CONTROL MANAGER Gender Identity Not on file Sexual [...] STI screening follows ACOG guidelines(PB 168, 140, WQS342). See individual assays for performing site location. [...] 2:33 PM CDT [facility] COUNSELOR AT LAW: SEE COMMENT 2020 2:33 PM CDT [facility] Comment: AMW, CT(ASCP) CT screening location: [place] [address] Administration [place] [address] EXPLANATORY NOTE SEE COMMENT 021 2:33 PM CDT [facility] Comment: EXPLANATORY NOTE: The [...] AM CDT 10/13/2020 12:46 PM CDT Narrative [facility] - 10/17/2020 2:33 PM CDT Performing Organization Information: Site ID: Name: [facility] Address: [facility] Administration [place] [address] Director: Karen Camp Radha Knox DO PATHOLOGY/CYTOLOGY ORDERABLES Final Result [facility] [phone] * CHLAMYDIA AND GC, PAP VIAL (10/13/2020 9:48 AM CDT) C TRAC RNA NOT DETECTED NOT DETECTED 10/17/2020 2:33 PM CDT [facility] N.GONORRHOEAE RNA, TMA NOT DETECTED NOT DETECTED 10/17/2020 2:33 PM CDT [facility] COMMENT SEE COMMENT 10/17/2020 2:33 PM CDT [facility] Comment: The analytical performance characteristics of this assay, when used to test SurePath(TM) specimens have been determined by [facility]. The modifications have not been cleared or approved by the FDA. This assay has been validated pursuant to the CLIA regulations and is used for clinical purposes. For additional information, please refer to https://education.International Youth Organization/faq/MTA060 (This link is being provided for information/ educational purposes only.) Genital SWAB OF ENDOCERVIX / Unknown Collection / Unknown 10/13/2020 9:48 AM CDT 10/13/2020 12:46 PM CDT Narrative [facility] - 10/17/2020 2:33 PM CDT Performing Organization Information: Site ID: [id number] Name: [facility] Address: [address] [place] [address] Director: Jose White D.O., MPH Radha Knox DO BODY FLUIDS AND STOOLS COM Fin al Result [facility] [phone] * CERV/VAG CYTOPATH, THIN PREP IMAGR RFLX [...] has been evaluated with computer assisted technology. COUNSELOR AT LAW: SEE COMMENT 2016 3:24 PM CDT [facility] Comment: BAB, CT(ASCP) CT screening location: [place] [address] Administration [place] [address] Genital SWAB OF ENDOCERVIX / Unknown Collection / Unknown 01/07/2017 8:13 AM CDT 01/07/2017 1:19 PM CDT Narrative [facility] - 2017 3:24 PM CDT Performing Organization Information: Site ID: Name: [facility] Address: [facility] Administration [place] [address] Director: Karen Camp MD Radha Knox DO PATHOLOGY/CYTOLOGY ORDERABLES Final Result [facility] from Last 3 Months or Most Recently Relevant to Health Maintenance Insurance [facility] GENER[facility] Care Teams Bagging Machine Operator Relationship Specialty Start Date End Date Radha Knox DO [address] [place] [phone] PCP - General Family Practice 09/29/15
--- OUTSIDE RECORDS SUMMARY | 2024-09-21 18:40 | XMS_ITS | Encounter Summary ---
Author Organization [employer] [facility] Address [address] [place] [address] Care Team Providers Care Banquet Food Server Name Role Phone Radha Knox DO Primary Care Provider Encounter Details Date Type Department Care Team (Latest Contact Info) Description 09/16/2009 Outpatient Historical [facility] [address] [place] [address] Radha Knox DO [address] [place] [address] Metrorrhagia (Primary Dx); Other General Medical Examination for Administrative Purposes Social History Tobacco Use Types Packs/Day Years Used Date Smoking Tobacco: Never Assessed Comments Unknown Sex and Gender Information Value Date Recorded Sex Assigned at Not on file Legal Sex Female 11:47 AM [employer] Gender Identity Not on file Sexual Orientation Not on file documented as of this encounter Plan of Treatment Not on file documented as of this encounter Visit Diagnoses Diagnosis Metrorrhagia- Primary Other general medical examination for administrative purposes documented in this encounter Care Teams Banquet Food Server Relationship Specialty Start Date End Date Radha Knox DO [address] [place] [address] PCP - General Family Practice 09/29/15 documented as of this encounter
[2024-09-21 19:11] VITALS: PULSE 80; RESP 18; TEMP 37.1; O2SAT 100
== END 2024-09-21 19:12 | disposition home or self-care (01) ==
PROVIDERS: Emergency Provider Emergency Medicine; PCP Family Medicine
DX: L50.9 Urticaria, unspecified (principal)
CPT/HCPCS: 96374; 99284; A9270; J2919